=== PATIENT | female | born 1950 | race Caucasian/White ===

== ENCOUNTER 2017-06-11 15:45 | Inpatient (IN) ==
--- NOTE | 2017-06-11 16:32 | EKG Report ---
Stationary ECG Study [facility] ER Test Date: 06/11/2017 4:30:54 PM Pat Name: MADINA RODRIGUEZ Department: Room: Gender: F Electric Shipyard Operator: : 1950 Requested by: Avery Barbosa Order Number: [id number] Reading MD: CADEN CHANDLER Intervals [place] Rate: 77 P: 38 RI: 124 QRS: 3 QRSD: 86 T: 28 QT: 419 QTc: 451 Interpretive Statements SINUS RHYTHM WITH OCCASIONAL VENTRICULAR PREMATURE COMPLEXES MODERATE VOLTAGE CRITERIA FOR LVH, CONSIDER NORMAL VARIANT Electronically Signed On 06-11-17 18:50:27 CDT by CADEN CHANDLER [email or web address]
--- NOTE | 2017-06-11 16:32 | XRay Report ---
Exam: XR chest 1V Date: 06/11/2017 4:10 PM Indication: Rales right base Comparison: None Technical: AP Findings: The heart is normal in size. The examination suggest possibility of pneumoperitoneum eventration of left hemidiaphragm versus a possibly a large hiatal hernia which seems less likely. Atelectatic changes are present with prominence in the perihilar regions bilaterally. Impression: 1. Masslike density or eventration along the left hemidiaphragm and/or possibility of a large bulla or pneumoperitoneum or hiatal hernia present. This exam is extremely limited on the AP view. Atelectatic changes are present with low volume effusions in both bases. CT scan of the chest and abdomen /pelvis are recommended for further evaluation of this patient. Critical test result. These findings were discussed with Dr. Lali Mcdonald. PROCEDURE INTERPRETED AT [facility] DEPARTMENT OF RADIOLOGY Final Report Signed by: Dr. Alverto Choudhury
[2017-06-11 17:01] LABS: CKMB % 1.8 %
[2017-06-11 17:03] LABS: Troponin I Only 2.4 NG/ML (0.00-0.045)
--- NOTE | 2017-06-11 17:57 | Emergency Department Note ---
Sixto Hendrickson Brooke, am scribing for, and in the presence of, Avery Mcdonald MD 16:16. Harry Hendrickson Phillip K, MD, personally performed the services described in this documentation, ascribed by Eunice Henson in my presence, and it is both accurate and complete 632 . Arrival <Jc Castro - Last Filed: 06/11/17 19:03> - Arrival ED Nursing Triage Note: pt had 4 fentalyn patches on. karly removed two and left a 50mcg and a 100mcg fentalyn patch. pt had abnormal troponin Mode of Arrival: Stretcher Limitations: No Limitations Source: Patient, EMS, RN Notes Reviewed <Avery Mcdonald - Last Filed: 06/12/17 10:03> - Arrival Chief Complaint: Non-Specific Time Seen by Provider: 06/11/17 16:04 - History of Present Illness HPI Narrative: Patient is a 66 year old female who was brought into the ED by EMS, from [facility], with c/o abnormal troponin. Labwork at [facility]- CPK: 771, CKMB: 21, and Troponin: 1.56. Patient says she "accidentally" overdosed on Fentanyl patches last night. She normally wears two but had four on. Patient went to [facility] with c/o being confused. She says she feels sluggish. She denies having any chest pain and fever but says she has been short of breath for the "last couple of weeks" and had a non- productive cough. Patient has never had a heart cath done. She has no other complaints. Patient has PMHx of CHF, HTN, CT, asthma, recurring urinary tract infections, and osteoporosis. She is a smoker. (Eunice Henson) Patient is a 66 year old female who was brought into the ED by EMS, from [facility], with c/o abnormal troponin. Labwork at [facility]- CPK: 771, CKMB: 21, and Troponin: 1.56. Patient says she "accidentally" overdosed on Fentanyl patches last night. She normally wears two but had four on. Patient went to [facility] with c/o being confused. She says she feels sluggish. She denies having any chest pain and fever but says she has been short of breath for the "last couple of weeks" and had a non- productive cough. Patient has never had a heart cath done. She has no other complaints. Patient has PMHx of CHF, HTN, CT, asthma, recurring urinary tract infections, and osteoporosis. She is a smoker. (Avery Mcdonald) Allergies/Adverse Reactions: Allergies Allergy/AdvReac Type Severity Reaction Status Date / Time Cephalosporins AdvReac ANAPHYLAXIS Verified 06/11/17 15:58 Erythromycin Base AdvReac RASH Verified 06/11/17 15:58 naproxen AdvReac RASH Verified 06/11/17 15:58 Home Medications: Home Medications Medication Instructions Recorded Confirmed Type Aspirin [Ecotrin] 81 mg PO QAM 06/11/17 06/11/17 History Beclomethasone 40 Mcg Inhaler 120 mcg INH BID PRN 06/11/17 06/11/17 History [Qvar 40 Mcg] Carisoprodol [Soma] 350 mg PO TID 06/11/17 06/11/17 History Celecoxib [Celebrex] 200 mg PO QAM 06/11/17 06/11/17 History Cholecalciferol [Vitamin D3] 1,000 unit PO BEDTIME 06/11/17 06/11/17 History Fluoxetine HCl [Prozac] 40 mg PO BID 06/11/17 06/11/17 History Hydromorphone HCl [Hydromorphone 4 mg PO TID 06/11/17 06/11/17 History HCl] Indapamide [Indapamide] 2.5 mg PO QAM 06/11/17 06/11/17 History Ipratropium/Albuterol Inhaler 3 puffs PO DAILY PRN 06/11/17 06/11/17 History [Combivent Respimat Inhaler] Lubiprostone [Amitiza] 24 mcg PO BID W/MEALS 06/11/17 06/11/17 History Montelukast Sodium [Montelukast 10 mg PO BEDTIME 06/11/17 06/11/17 History Sodium] Multivit-Min/FA/Lycopen/Lutein 1 each PO QAM 06/11/17 06/11/17 History [Centrum Silver Tablet] Oxymetazoline 0.05% Nasal Spr 2 spray BOTH NARES BID PRN 06/11/17 06/11/17 History [Afrin Nasal [place]] Polyethylene Glycol Powder 34 gm PO DAILY PRN 06/11/17 06/11/17 History [Miralax] Potassium Chloride [Potassium 20 meq PO TID 06/11/17 06/11/17 History Chloride] Spironolactone [Spironolactone] 25 mg PO BID 06/11/17 06/11/17 History Trazodone HCl [Trazodone HCl] 200 mg PO BEDTIME 06/11/17 06/11/17 History Verapamil HCl [Verapamil ER Tab] 120 mg PO QPM 06/11/17 06/11/17 History Verapamil HCl [Verapamil ER Tab] 240 mg PO QAM 06/11/17 06/11/17 History fentaNYL [Fentanyl 100 mcg/hr 1 each TRANSDERM Q2D 06/11/17 06/11/17 History Patch] fentaNYL [Fentanyl 50 mcg/hr Patch] 1 each TRANSDERM Q2D 06/11/17 06/11/17 History hydrOXYzine HCl [Hydroxyzine HCl] 25 mg PO TID 06/11/17 06/11/17 History raNITIdine HCl [Ranitidine HCl] 300 mg PO BID 06/11/17 06/11/17 History Review of System - Review of System 12 point system: reviewed and no additional remarkable complaints except as stated - Review of System Constitutional: Present: other (overdosed on Fentanyl patches). Absent: fever Respiratory: Present: cough (non-productive), other (shortness of breath). Absent: respiratory distress Cardiovascular: Absent: chest pain Skin: Absent: rash Neurological: Present: confusion <Avery Mcdonald - Last Filed: 06/12/17 10:03> Medical,Surgical,& Family Hx - Medical History Cardio: History of: CHF, Hypertension, CT Respiratory: History of: Asthma Genitourinary: History of: Recurring Urinary Tract Infections Musculoskeletal: History of: Osteoporosis - Social History Smoking Status: Smoker, status unknown Frequency of Alcohol Use: Occasionally Type of Drug Use: Prescription Drug Abuse <Avery Mcdonald - Last Filed: 06/12/17 10:03> Exam - General General appearance: alert, in no apparent distress - Head Head exam: Present: atraumatic, normocephalic - Eye Eye exam: Present: normal appearance, PERRL, EOMI - ENT ENT exam: Present: normal exam - Neck Neck exam: Present: normal inspection - Chest Chest inspection: Present: normal inspection, symmetric chest wall rise - Respiratory Respiratory exam: Present: rales (Right base), other (decreased breath sounds in left base) - Cardiovascular Cardiovascular exam: Present: regular rate, normal rhythm, normal heart sounds - Abdominal Exam Abdominal exam: Present: soft, normal bowel sounds. Absent: distention, tenderness - Extremities Exam Extremities exam: Present: pedal edema (3+ bilateral lower extremity pitting edema) - Back Exam Back exam: Present: normal inspection - Neurological Exam Neurological exam: Present: alert, oriented X3 - Psychiatric Psychiatric exam: Present: normal affect, normal mood - Skin Skin exam: Present: warm, dry, intact, normal color <Avery Mcdonald - Last Filed: 06/12/17 10:03> Vital Signs: Vital Signs Temperature 97.6 F 06/12/17 08:00 Pulse Rate 84 06/12/17 08:00 Respiratory Rate 20 06/12/17 08:00 Blood Pressure 144/90 06/12/17 08:00 O2 Sat by Pulse Oximetry 97 06/12/17 08:00 Course - Consultations Time: 19:03 <Jc Castro - Last Filed: 06/11/17 19:03> <Avery Mcdonald - Last Filed: 06/12/17 10:03> Course Narrative: Patient discussed with Dr. Garcia at 1626 and was told of the positive troponin. Patient's EKG remains normal. (Avery Mcdonald) - Consultations Consultation #1: Spoke to Dr. Regan he is aware of the CT results he agreed to admit this patient for rise in troponin levels (Jc Castro) Results <cJ Castro - Last Filed: 06/11/17 19:03> - Labs CBC & BMP: 06/12/17 01:13 06/12/17 01:13 Lab Results: I have reviewed the patients labs - EKG EKG results: interpreted by ERMWalter, sinus rhythm (Nonspecific ST-T changes) - Diagnostic Findings Procedure: Chest x-ray: report reviewed by me (Masslike density or eventration along the left hemidiaphragm and/or possibility of large bulla or pneumoperitoneum or hiatal hernia present. This exam is extremely limited on the AP view. Atelectatic changes are present with low volume effusions in both bases.) <Avery Mcdonald - Last Filed: 06/12/17 10:03> - Labs Labs: Laboratory Tests 06/11/17 16:22 Total Creatine Kinase 942 H CK-MB (CK-2) 17.4 H CK and CKMB Interp 1.8 Troponin I 2.400 H (Eunice Henson) Laboratory Tests 06/11/17 16:22 Total Creatine Kinase 942 H CK-MB (CK-2) 17.4 H CK and CKMB Interp 1.8 Troponin I 2.400 H (Avery Mcdonald) Disposition Case discussed with: patient, patient's family Time of Disposition: 19:04 <Jc Castro - Last Filed: 06/11/17 19:03> Case discussed with: patient <Avery Mcdonald - Last Filed: 06/12/17 10:03> Clinical Impression: Non Q wave myocardial infarction, Elevated troponin, Non-ST elevated myocardial infarction (non-STEMI) Disposition: Still a Patient Condition: Guarded
--- NOTE | 2017-06-11 18:32 | CT Report ---
CT of the chest, abdomen, and pelvis without intravenous or oral contrast. Indication: Chest and abdomen pain. Rales at the right lung base. Abnormal chest x-ray. No prior study. CT the chest: The thyroid gland is normal in size. There is no supraclavicular or axillary lymphadenopathy. There is calcific plaque present within a normal caliber thoracic aorta. There is coronary artery calcification. The heart size is normal. There is no pericardial or pleural effusion. No definite lymphadenopathy. Calcified granulomas are noted within the right upper lung field. There is mild atelectasis in the right middle lobe. No suspicious masses or infiltrates involving the right lung. The left hemidiaphragm is intact but elevated. There are linear areas of atelectasis or scarring in the left lower lobe. There is a very small hiatal hernia. There is no diaphragmatic hernia seen. There are multiple thoracic compression fractures, exaggerated kyphosis, and moderate degenerative change. Postsurgical changes are noted in the lower cervical spine, and at the thoracolumbar junction. Impression: 1. Marked elevation of the left hemidiaphragm. 2. Atelectasis or scarring at the left lung base. 3. Small hiatal hernia. 4. Mild atelectasis at the right lung base. 5. Atherosclerotic disease. 6. Multiple thoracic compression fractures. CT of the abdomen and pelvis: As was noted on the CT of the chest, there is marked elevation of the left hemidiaphragm. The left hemidiaphragm is intact. There is no free air present. There is a mild hiatal hernia. The gastric contour is grossly normal. The liver is normal in size. Hepatic granulomas are noted. The gallbladder has been removed. The common hepatic duct is markedly dilated at 24 mm. This tapers within the head of the pancreas, no calcification noted. The pancreas is quite atrophied. The spleen is somewhat prominent. The spleen has a lobular portion seen medially. Without contrast, the presence of a mass cannot be determined. The abdominal aorta is tortuous and contains moderate plaque. No aneurysmal dilatation. There is a small 3 mm right renal calculus. No hydronephrosis. The urinary bladder is collapsed around a Fong catheter. There is no free fluid in the abdomen or pelvis. There is no adrenal enlargement. The small intestine is not dilated. The colon is dilated and redundant and contains considerable fecal material throughout its length. No colonic wall thickening or evidence of obstruction. The pelvic organs have been removed. No adenopathy. There is orthopedic hardware present within the left hip. There is a severe grade 2 spondylolisthesis of L5 on S1, with prominent degenerative changes of the spinal column as well as postsurgical changes in thoracic compression fractures. Impression: 1. Marked elevation of the left hemidiaphragm. No diaphragmatic hernia. 2. Small hiatal hernia. 3. Lobular contour to the spleen. This may represent normal variant. The absence or presence of a mass could be determined with ultrasound. 4. Marked dilatation of the common bile duct, the cause of which is not determined. Maximum diameter 2.4 cm. 5. Right nephrolithiasis without obstruction. 6. Severe constipation. 7. Spondylolisthesis, degenerative change, and chronic compression fractures The CT exam was performed using one or more of the following dose reduction techniques: Automated exposure control, adjustment of the mA and/or kV according to patient size, or use of iterative reconstruction technique. PROCEDURE INTERPRETED AT [facility] DEPARTMENT OF RADIOLOGY Final Report Signed by: Dr. Yuko May
[2017-06-11] MEDS ORDERED: ENOXAPARIN 80 MG/0.8 ML SYRINGE SUBCUT SCH (22:00)
[2017-06-11] MEDS ORDERED: fentaNYL 50 MCG/HR PATCH TRANSDERM SCH (22:03)
[2017-06-11] MEDS ORDERED: ONDANSETRON 4 MG/2 ML VIAL IV PRN (22:03)
[2017-06-11] MEDS ORDERED: BECLOMETHASONE 40 MCG/PUFF INHALER 8.7 GM INH PRN (22:03)
[2017-06-11] MEDS ORDERED: MAGNESIUM SULF RIDER 2 GM in PREMIX 1 EACH IV PRN (22:03)
[2017-06-11] MEDS ORDERED: OXYMETAZOLINE 0.05% NASAL SPRAY 15 ML BOTTLE BOTH NARES PRN (22:03)
[2017-06-11] MEDS ORDERED: fentaNYL 100 MCG/HR PATCH TRANSDERM SCH (22:03)
[2017-06-11] MEDS ORDERED: POLYETHYLENE GLYCOL POWDER 17 GM PACK PO PRN (22:03)
[2017-06-11] MEDS ORDERED: SODIUM CHLORIDE 0.9% 1,000 ML IV SCH (22:03)
[2017-06-11] MEDS ORDERED: MAGNESIUM SULF RIDER 4 GM in PREMIX 1 EACH IV PRN (22:03)
[2017-06-11] MEDS ORDERED: MORPHINE 2 MG/1 ML SYRINGE IV PRN (22:03)
--- NOTE | 2017-06-11 22:30 | EKG Report ---
Stationary ECG Study [facility] Test Date: 06/11/2017 10:26:15 PM Pat Name: MADINA RODRIGUEZ Department: Room: 263 Gender: F Business Analysis Specialist: : 1950 Requested by: Jc Billings Order Number: [id number] Reading MD: JONY SHERIFF Intervals [place] Rate: 70 P: 66 ID: [id number] QRS: 36 QRSD: 93 T: 71 QT: 465 QTc: 486 Interpretive Statements SINUS RHYTHM at 70 bpm NST Electronically Signed On 06-15-17 14:14:47 CDT by JONY SHERIFF [email or web address]
[2017-06-11] MEDS ORDERED: ASPIRIN 325 MG TABLET PO ONE (22:44)
[2017-06-11] MEDS ORDERED: FUROSEMIDE 40 MG/4 ML VIAL IV ONE (22:45)
[2017-06-11] MEDS ORDERED: ENOXAPARIN 40 MG/0.4 ML SYRINGE SUBCUT ONE (22:46)
[2017-06-11 23:04] LABS: CKMB % 1.7 %
[2017-06-11 23:07] LABS: Troponin I Only 1.83 NG/ML (0.00-0.045)
[2017-06-11] MEDS: hydrOXYzine HCL 25 MG TABLET PO SCH (23:16)
[2017-06-11] MEDS: HYDROmorphone 2 MG TABLET PO SCH (23:16)
[2017-06-11] MEDS: SPIRONOLACTONE 25 MG TABLET PO SCH (23:16)
[2017-06-11] MEDS: FAMOTIDINE 20 MG TABLET PO SCH (23:17)
[2017-06-11] MEDS: POTASSIUM CHLORIDE 20 MEQ TABLET PO SCH (23:17)
[2017-06-11] MEDS: CHOLECALCIFEROL 1,000 UNIT TABLET PO SCH (23:18)
[2017-06-11] MEDS: MONTELUKAST 10 MG TABLET PO SCH (23:18)
[2017-06-11] MEDS: traZODone 50 MG TABLET PO SCH (23:18)
[2017-06-11] MEDS: FLUoxetine 20 MG CAPSULE PO SCH (23:18)
[2017-06-11] MEDS: CARISOPRODOL 350 MG TABLET PO SCH (23:18)
--- NOTE | 2017-06-12 00:39 | EKG Report ---
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
[2017-06-12] MEDS: NITROGLYCERIN 2% OINT 1 INCH/GM PACK TOP SCH ×2 (00:41→06:20)
[2017-06-12 01:25] LABS: Basophils % 0.7 % (0.0-0.8); Eosinophils # 0.1 10*3/uL (0.0-0.87); Eosinophils % 2.6 % (0.00-10.9); Hematocrit 36.5 VOL% (35.7-47.0); Hemoglobin 12.4 GM/DL (12.0-16.0); Immature Granulocytes % 0.2 %; Immature Granulocytes Absolute 0.01 #; Lymphocytes # 1.4 10*3/uL (1.4-4.0); Lymphocytes % 33.9 % (21.3-54.2); Mean Corpuscular Hemoglobin 30 PG (27-34); Mean Corpuscular Volume 86.9 FL (87-102); Mean Platelet Volume 10.7 FL (9.6-12.0); Monocytes # 0.3 10*3/uL (0.11-0.8); Monocytes % 8.1 % (1.7-12.7); Neutrophils # 2.3 10*3/uL (1.4-7.4); Neutrophils % 54.5 % (38.7-73.9); Platelet Count 146 T/CUMM (130-400); Red Cell Distribution Width 13.2 % (9.3-17.3); White Blood Count 4.2 T/CUMM (4-12)
[2017-06-12 02:01] LABS: Albumin 3.3 G/DL (3.4-5.0); Bilirubin,Total 0.5 MG/DL (0.2-1.0); CKMB % 1.6 %; Calcium 9.2 MG/DL (8.5-10.1); Magnesium 1.7 MG/DL (1.8-2.4); Osmolality,Calculated 273.7 MOS/KG (273-304); Potassium 3.3 MMOL/L (3.5-5.1); Risk Ratio 2.61; Total Protein 5.9 G/DL (6.4-8.3); VLDL CHOLESTEROL 13.4 MG/DL
[2017-06-12 02:02] LABS: CKMB % 1.7 %
[2017-06-12 02:04] LABS: Troponin I Only 1.41 NG/ML (0.00-0.045); Troponin I Only 1.44 NG/ML (0.00-0.045)
[2017-06-12] MEDS: POTASSIUM CHLORIDE 20 MEQ TABLET PO PRN ×3 (02:11→06:20)
--- NOTE | 2017-06-12 04:20 | EKG Report ---
Stationary ECG Study [facility] Test Date: 06/12/2017 4:16:42 AM Pat Name: MADINA RODRIGUEZ Department: Room: 263 Gender: F Government Services Professional: : 1950 Requested by: Jc Billings Order Number: [id number] Reading MD: JONY SHREIFF Intervals [place] Rate: 78 P: 62 VA: 154 QRS: 55 QRSD: 93 T: 76 QT: 462 QTc: 495 Interpretive Statements SINUS RHYTHM at 70 bpm Prolonged QT INTERVAL Electronically Signed On 06-15-17 14:17:45 CDT by JONY SHERIFF [email or web address]
[2017-06-12] MEDS ORDERED: ALBUTEROL PO PRN (07:28)
[2017-06-12] MEDS ORDERED: IPRATROPIUM PO PRN (07:28)
[2017-06-12] MEDS ORDERED: MAGNESIUM HYDROXIDE SUSP 30 ML UDCUP PO ONE (07:30)
[2017-06-12] MEDS ORDERED: BISACODYL 10 MG SUPP RECTAL ONE (07:30)
[2017-06-12] MEDS ORDERED: DIAZEPAM 5 MG TABLET PO ONE (07:31)
[2017-06-12] MEDS ORDERED: MAGNESIUM SULF RIDER 2 GM in PREMIX 1 EACH IV PRN (07:31)
[2017-06-12] MEDS ORDERED: POTASSIUM CHLORIDE RIDER 10 MEQ in PREMIX 1 EACH IV PRN (07:31)
[2017-06-12] MEDS ORDERED: diphenhydrAMINE CAP 25 MG CAPSULE PO ONE (07:31)
[2017-06-12] MEDS ORDERED: HEPARIN/NACL 0.9% 2 UNITS/ML 1,000 ML IV ONE (07:36)
[2017-06-12] MEDS ORDERED: LIDOCAINE 1% 20 ML VIAL ONE (07:36)
--- NOTE | 2017-06-12 07:37 | Cardiology History & Physical ---
Assessment and Plan (1) CHF (congestive heart failure) Status: Acute Current Visit: Yes (2) Non-ST elevated myocardial infarction (non-STEMI) Status: Acute Assessment and plan: 1. 66-year-old WF smoker (reportedly quit within the last week) with hypertension, reported dyslipidemia, chronic pain on significant narcotic and other pain medications, presented to local ER due to mental status changes related to being on for fentanyl patches (reportedly she takes too regularly and reportedly forgot to take off the previous 2), incidentally noted to have elevated troponin suggesting non-STEMI with dyspnea on exertion and lower extremity swelling for several weeks suggestive of left and right heart failure. 2. No acute EKG changes are noted and no previous cardiac history although she has a strong family history of early coronary disease. 3. At high intensity statin therapy 4. Continue aspirin 5. CT scan showed incidental finding of possible spleen abnormality, will order ultrasound as recommended by CT report 6. Low-dose beta-leticia therapy 7. Constipation likely due to large amounts of narcotics for pain control. 8. Left heart catheterization to define her coronary anatomy I discussed with the patient the risks and benefits of heart catheterization including but not limited to: , stroke, heart attack, vascular damage, reaction to medicine or dye, bleeding requiring blood transfusion, failure of the procedure, and the possible need for planned or emergency surgery. I have answered all the patient's questions regarding the procedure, and the patient is agreeable to proceed. Current Visit: Yes (3) Constipated Status: Acute Current Visit: Yes (4) Spleen anomaly Status: Acute Current Visit: Yes History of Present Illness Chief complaint: MS change; sob History of present illness: Ms. Coleman is a 66 year old female who ended up at [facility] for uncertain reasons but apparently she had mental status changes. She is found to have 4 fentanyl patches on. Her workup she is noted to have elevated troponin over 1 and was asked about chest pain shortness of breath. She says she has had dyspnea problems for several weeks to a couple months and is also had some lower extremity edema for which her primary care doctor has been giving her medicines including diuretics. She denies any previous cardiac problems. She is very limited by her many pains especially lower back pain and sees Dr. Gordon for pain management. She also she has fibromyalgia. She is asymptomatic currently. Home Medications Medication Instructions Recorded Confirmed Type Aspirin [Ecotrin] 81 mg PO QAM 06/11/17 06/11/17 History Beclomethasone 40 Mcg Inhaler 120 mcg INH BID PRN 06/11/17 06/11/17 History [Qvar 40 Mcg] Carisoprodol [Soma] 350 mg PO TID 06/11/17 06/11/17 History Celecoxib [Celebrex] 200 mg PO QAM 06/11/17 06/11/17 History Cholecalciferol [Vitamin D3] 1,000 unit PO BEDTIME 06/11/17 06/11/17 History Fluoxetine HCl [Prozac] 40 mg PO BID 06/11/17 06/11/17 History Hydromorphone HCl [Hydromorphone 4 mg PO TID 06/11/17 06/11/17 History HCl] Indapamide [Indapamide] 2.5 mg PO QAM 06/11/17 06/11/17 History Ipratropium/Albuterol Inhaler 3 puffs PO DAILY PRN 06/11/17 06/11/17 History [Combivent Respimat Inhaler] Lubiprostone [Amitiza] 24 mcg PO BID W/MEALS 06/11/17 06/11/17 History Montelukast Sodium [Montelukast 10 mg PO BEDTIME 06/11/17 06/11/17 History Sodium] Multivit-Min/FA/Lycopen/Lutein 1 each PO QAM 06/11/17 06/11/17 History [Centrum Silver Tablet] Oxymetazoline 0.05% Nasal Spr 2 spray BOTH NARES BID PRN 06/11/17 06/11/17 History [Afrin Nasal [place]] Polyethylene Glycol Powder 34 gm PO DAILY PRN 06/11/17 06/11/17 History [Miralax] Potassium Chloride [Potassium 20 meq PO TID 06/11/17 06/11/17 History Chloride] Spironolactone [Spironolactone] 25 mg PO BID 06/11/17 06/11/17 History Trazodone HCl [Trazodone HCl] 200 mg PO BEDTIME 06/11/17 06/11/17 History Verapamil HCl [Verapamil ER Tab] 120 mg PO QPM 06/11/17 06/11/17 History Verapamil HCl [Verapamil ER Tab] 240 mg PO QAM 06/11/17 06/11/17 History fentaNYL [Fentanyl 100 mcg/hr 1 each TRANSDERM Q2D 06/11/17 06/11/17 History Patch] fentaNYL [Fentanyl 50 mcg/hr Patch] 1 each TRANSDERM Q2D 06/11/17 06/11/17 History hydrOXYzine HCl [Hydroxyzine HCl] 25 mg PO TID 06/11/17 06/11/17 History raNITIdine HCl [Ranitidine HCl] 300 mg PO BID 06/11/17 06/11/17 History Allergies Allergy/AdvReac Type Severity Reaction Status Date / Time Cephalosporins AdvReac ANAPHYLAXIS Verified 06/11/17 15:58 Erythromycin Base AdvReac RASH Verified 06/11/17 15:58 naproxen AdvReac RASH Verified 06/11/17 15:58 Medical,Surgical,& Family Hx - Medical History Cardio: History of: CHF, Hypertension, [place] Respiratory: History of: Asthma Genitourinary: History of: Recurring Urinary Tract Infections Musculoskeletal: History of: Osteoporosis - Social History Smoking Status: Current some day smoker Frequency of Alcohol Use: Occasionally Type of Drug Use: Prescription Drug Abuse Cardiology Physical Exam - Constitutional Vitals: Vital Signs Temp Pulse Resp BP Pulse Ox 97.9 F 73 19 98/63 90 L 06/12/17 04:00 06/12/17 04:00 06/12/17 07:10 06/12/17 04:00 06/12/17 04:00 Intake and Output 06/11/17 06/11/17 06/12/17 15:59 23:59 07:59 Output Total 1100 / 1100 1999 / 1999 Balance -1100 / -1100 -2000 / -1999 Output: Urine 1000 / 1000 1999 / 1999 Post Void Residual Amount 100 / 100 Uretheral (Fong) 100 / 100 Other: Voiding Method Indwelling Catheter Indwelling Catheter Weight 68.039 kg 75.892 kg 74.928 kg Patient Weight 06/12/17 23:59 Weight 74.928 kg General appearance: normal weight, no acute distress - Head Head exam: Present: normal inspection, normocephalic, atraumatic - Respiratory Respiratory exam: Present: rales. Absent: stridor, wheezes - Cardiovascular Cardiovascular exam: Present: regular rate and rhythm. Absent: diastolic murmur , systolic murmur - GI/Abdominal GI/Abdominal exam: Present: soft. Absent: tenderness - Extremities Exam Extremities exam: Present: edema - Neurological Exam Neurological exam: Present: alert, oriented X3 - Psychiatric Psychiatric exam: Present: flat affect Result/EKG - Labs CBC & BMP: 06/12/17 01:13 06/12/17 01:13 Labs: Laboratory Results - last 24 hr 06/11/17 06/11/17 06/12/17 16:22 22:10 01:13 WBC RBC Hgb Hct MCV MCH MCHC RDW Plt Count MPV Neut % (Auto) Lymph % (Auto) [place] % (Auto) Eos % (Auto) Baso % (Auto) Neut # (Auto) Lymph # (Auto) [place] # (Auto) Eos # (Auto) Baso # (Auto) Immature Gran % Nucleated RBC % Immature Gran # Nucleated RBCs # Immature Plt Fraction Sodium Potassium Chloride Carbon Dioxide Anion Gap BUN Creatinine GFR Calculation BUN/Creatinine Ratio Glucose Calculated Osmolality Calcium Magnesium Total Bilirubin AST ALT Alkaline Phosphatase Total Creatine Kinase 942 H 819 H 705 H CK-MB (CK-2) 17.4 H 14.0 H 11.9 H CK and CKMB Interp 1.8 1.7 1.7 Troponin I 2.400 H 1.830 H D 1.410 H D B-Natriuretic Peptide Total Protein Albumin Globulin Albumin/Globulin Ratio Triglycerides Cholesterol LDL Cholesterol VLDL Cholesterol HDL Cholesterol Heart Disease Risk Ratio 06/12/17 06/12/17 06/12/17 01:13 01:13 01:13 WBC 4.2 RBC 4.20 Hgb 12.4 Hct 36.5 MCV 86.9 L MCH 30 MCHC 34.0 RDW 13.2 Plt Count 146 MPV 10.7 Neut % (Auto) 54.5 Lymph % (Auto) 33.9 Runnels % (Auto) 8.1 Eos % (Auto) 2.6 Baso % (Auto) 0.7 Neut # (Auto) 2.3 Lymph # (Auto) 1.4 [place] # (Auto) 0.3 Eos # (Auto) 0.1 Baso # (Auto) 0.0 Immature Gran % 0.2 Nucleated RBC % 0.0 Immature Gran # 0.01 Nucleated RBCs # 0.00 Immature Plt Fraction 0.0 Sodium 138 Potassium 3.3 L Chloride 96 L Carbon Dioxide 36 H Anion Gap 9.3 BUN 9 Creatinine 0.90 GFR Calculation 69 BUN/Creatinine Ratio 10.00 Glucose 105 Calculated Osmolality 273.7 Calcium 9.2 Magnesium 1.7 L Total Bilirubin 0.50 AST 43 H ALT 22 Alkaline Phosphatase 83 Total Creatine Kinase CK-MB (CK-2) CK and CKMB Interp Troponin I B-Natriuretic Peptide 295 H Total Protein 5.9 L Albumin 3.3 L Globulin 2.6 Albumin/Globulin Ratio 1.2 Triglycerides 67 Cholesterol 209 H LDL Cholesterol 114.0 VLDL Cholesterol 13.4 HDL Cholesterol 80 H Heart Disease Risk Ratio 2.61 06/12/17 01:13 WBC RBC Hgb Hct MCV MCH MCHC RDW Plt Count MPV Neut % (Auto) Lymph % (Auto) [place] % (Auto) Eos % (Auto) Baso % (Auto) Neut # (Auto) Lymph # (Auto) [place] # (Auto) Eos # (Auto) Baso # (Auto) Immature Gran % Nucleated RBC % Immature Gran # Nucleated RBCs # Immature Plt Fraction Sodium Potassium Chloride Carbon Dioxide Anion Gap BUN Creatinine GFR Calculation BUN/Creatinine Ratio Glucose Calculated Osmolality Calcium Magnesium Total Bilirubin AST ALT Alkaline Phosphatase Total Creatine Kinase 719 H CK-MB (CK-2) 11.6 H CK and CKMB Interp 1.6 Troponin I 1.440 H B-Natriuretic Peptide Total Protein Albumin Globulin Albumin/Globulin Ratio Triglycerides Cholesterol LDL Cholesterol VLDL Cholesterol HDL Cholesterol Heart Disease Risk Ratio
--- NOTE | 2017-06-12 08:34 | History and Physical Update ---
Sedation H&P Update - History and Physical H&P was reviewed, the patient examined and there: are no changes in the patients condition since last H&P was completed. - Dictation Physical: refer to scanned H&P - Physical Exam Mental Status: alert and oriented Heart: regular rate and rhythm Lung: other (globally diminished breath sounds) Abdomen: other (tender and normal bowel souds) Vitals: within normal limits History and Physical Changes: Painful bilateral LE edema - Sedation Plan for Sedation: minimal Patient Consent: Procedure disscussed with patient and patinet has consented., Risks and benefits were discussed with patient,including infection,, bleeding, injury to surrounding structures, seizure, temporary nerve, Patient understands and accepts potential risks/benefits and agrees to, proceed. ASA Class: II Airway Assessment: Class II: Soft palate, uvula, fauces visible
--- NOTE | 2017-06-12 08:36 | XRay Report ---
History is short of breath Comparison 06/11/2017 The heart is enlarged with mild upper lobe vascular prominence. Mild diffuse reticular opacities remain with mild improvement in the interval. Marked elevation or eventration of the left diaphragm again seen. Impression: Interval improvement with mild residual diffuse interstitial infiltrates versus edema PROCEDURE INTERPRETED AT [facility] DEPARTMENT OF RADIOLOGY Final Report Signed by: Dr. Lisa May
[2017-06-12] MEDS: ASPIRIN EC 81 MG TABLET PO SCH (08:43)
[2017-06-12] MEDS: FAMOTIDINE 20 MG TABLET PO SCH ×2 (08:44→22:21)
[2017-06-12] MEDS ORDERED: INDAPAMIDE 2.5 MG TABLET PO SCH (09:00)
[2017-06-12] MEDS ORDERED: VERAPAMIL SR 240 MG TABLET PO SCH (09:00)
[2017-06-12] MEDS ORDERED: ASPIRIN EC 325 MG TABLET PO SCH (09:00)
[2017-06-12] MEDS ORDERED: fentaNYL 100 MCG/2 ML VIAL ONE (09:37)
[2017-06-12] MEDS ORDERED: MIDAZOLAM 2 MG/2 ML VIAL ONE (09:37)
[2017-06-12] MEDS ORDERED: BIVALIRUDIN 250 MG VIAL IV ONE (10:19)
[2017-06-12] MEDS ORDERED: NITROGLYCERIN DRIP 50 MG/250 ML BOTTLE IV ONE (10:19)
[2017-06-12] MEDS ORDERED: TICAGRELOR 90 MG TABLET ONE (10:32)
[2017-06-12] MEDS ORDERED: HEPARIN/NACL 0.9% 2 UNITS/ML 500 ML IV ONE (10:37)
[2017-06-12] MEDS ORDERED: ZALEPLON 5 MG CAPSULE PO PRN (10:38)
--- NOTE | 2017-06-12 10:50 | Cardiac Catheterization ---
Date of Procedure:: 06/12/17 Pre-op Diagnosis: Shortness of breath (dyspnea) and chest pain Post-op diagnosis: other (2 vessel coronary disease status post successful PCI of the mid RCA and mid left circumflex with 2.5 x 20 mm and 2.515 mm Synergy drug-eluting stents respectively) Procedure: After consent was taken from the patient. Taken to the catheterization lab for left heart catheterization via the femoral artery. Time out was taken and recorded. 1% lidocaine was infiltrated in the skin and subcutaneous tissue overlying the right femoral artery. Modified Seldinger technique and an 18- gauge Cook needle was used for access to the right femoral artery. An 0.35 J- wire was advanced through the needle into the central aorta under fluoroscopy. A small skin was made and a 6 Sinhala sheath was placed over the wire. The sheath was aspirated and flushed. A JL46 was advanced over the wires in the left main coronary artery was selectively engaged. Multiple orthogonal views of the left system were obtained. The catheter was then exchanged over the wire. The sheath was aspirated and flushed. A JR4 catheter was advanced over the wire into the central aorta. The right coronary was selectively engaged and orthogonal views of the right coronary artery were obtained. The catheter was then exchanged over the wire, the sheath was aspirated and flushed. At this time an angled pigtail catheter was advanced across the aortic valve into the ventricle. Pressure measurements were obtained and a cine ventriculogram was performed in the TURNER projection with total of 10 mL of contrast by hand injection. Pullback measurements were performed. The ferryboat operator helper reviewed the films. The room was set up for the intervention mode. Angiomax bolus infusion were given. The patient received an aspirin but no thienopyridine prior to the procedure. This time a JR4 guide is Miller of the one surgery over the right coronary slightly gauge 180 cm on December underwires of his into the distal RCA. This was followed by 2.0 by 12 mm [place] balloon. 2 inflations were made the balloon was removed and the area was stented with a 2.5 x 20 mm Synergy drug-eluting stent with excellent endograft result. He stent was postdilated to high pressure atmospheres with a 2.5 x 15 mm NC Quantum balloon. Wire was removed multiple orthogonal views were obtained. At this time intervention mode was turned over to focus on the left circumflex the JR4 guide was exchanged over wire and sheath was aspirated flushed and EBU 3.5 guide catheter was used to engage left main coronary artery in 180 cm pro- water wire was advanced in the distal left circumflex. This area was then predilated with the previous 2.0 x 12 mm [place] balloon. Balloon was removed and there was a 2.5 x 15 mm Synergy drug-eluting stent was advanced and cover the area of stenosis the stent was deploy. There was extreme waist in the mid segment of the stent. Stent balloon was removed the area was postdilated to 18 mario with a NC 2.5 Balloon. Wire balloon removed multiple orthogonal views were obtained. The sheath was aspirated and flushed and a right femoral and iliac angiography was performed. The access site was amenable for closure and the area was reprepped with ChloraPrep and draped with sterile towels. The Angio-Seal closure device was used in standard technique. There was no hematoma and distal pulses were good. Total diagnostic fluoroscopy time 7.9 minutes total fluoroscopy dose 849 mGy total contrast exposure 170 cc of Omnipaque FINDINGS: LV: 111/10 LVEDP: 17 Ao: 101/78 EF: 55% with no regional wall motion abnormality no gradient across the valve and no mitral regurgitation LM: A small vessel is angiographically normal LAD: There is a small vessel there is mild diffuse disease LCx: This is a nondominant vessel is relatively small and has an area of 80-90% focal stenosis in the mid left circumflex there is poststenotic dilatation. ROMMEL-3 flow in the vessel pre-and post PCI post PCI or 0% residual ROMMEL-3 flow RCA: This is a very small but dominant vessel. There is approximately 80% stenosis in the proximal portion of the midsegment pre-PCI with ROMMEL-3 flow post PCI or 0% residual stenosis with ROMMEL-3 flow. There is some poststenotic dilatation in this vessel. The vessel is diffusely diseased after the segment but is very small RFA/MONIQUE: These vessels are normal in immediate for closure no stenosis or plaque Assessment: 1. Two-vessel coronary disease status post successful PCI with 0% residual stenosis and ORMMEL-3 flow in both vessels in no apparent complication 2. Preserved cardiac volumes and ejection fraction with normal resting hemodynamics preserved ejection fraction PLAN: 1. Therapy lifestyle changes including and especially directed towards smoking cessation and aggressive risk factor modification pharmacologically 2. Dual antiplatelet therapy 3. Monitor for complications post PCI 4. Cardiac rehabilitation Implants: 2.5 x 20 mm Synergy drug-eluting stent in the mid RCA 2.5 x 15 mm Synergy in the mid left circumflex Angio-Seal closure right femoral arteriotomy Anesthesia: minimal conscious sedation Surgeon / Physician: Anay Olivas Adjunct Sociology Professor: none Estimated blood loss: none Specimens: none sent Condition: stable - Medications / Follow-up
[2017-06-12] MEDS ORDERED: SODIUM CHLORIDE 0.45% 1,000 ML IV SCH (11:00)
[2017-06-12] MEDS ORDERED: HYDROmorphone 2 MG TABLET PO PRN (11:24)
[2017-06-12] MEDS ORDERED: CARISOPRODOL 350 MG TABLET PO PRN (11:25)
[2017-06-12] MEDS: SPIRONOLACTONE 25 MG TABLET PO SCH ×2 (14:13→22:22)
[2017-06-12] MEDS: ATORVASTATIN 40 MG TABLET PO SCH ×2 (14:13→14:22)
[2017-06-12] MEDS: LUBIPROSTONE 24 MCG CAPSULE PO SCH ×3 (14:13→16:52)
[2017-06-12] MEDS: hydrOXYzine HCL 25 MG TABLET PO SCH ×3 (14:15→22:22)
[2017-06-12] MEDS: CARISOPRODOL 350 MG TABLET PO SCH (14:16)
[2017-06-12] MEDS: HYDROmorphone 2 MG TABLET PO SCH (14:16)
[2017-06-12] MEDS: MULTIVITAMIN (CENTRUM) TABLET PO SCH (14:22)
[2017-06-12] MEDS: POTASSIUM CHLORIDE 20 MEQ TABLET PO SCH ×3 (14:22→22:22)
[2017-06-12] MEDS: FLUoxetine 20 MG CAPSULE PO SCH ×2 (14:23→22:24)
--- NOTE | 2017-06-12 15:00 | EKG Report ---
Stationary ECG Study [facility] Test Date: 06/12/2017 11:08:13 AM Pat Name: MADINA RODRIGUEZ Department: Room: 263 Gender: F Roofer Helper: : 1950 Requested by: Caden Chandler Order Number: [id number] Reading MD: CADEN CHANDLER Intervals [place] Rate: 73 P: 58 [place]: 149 QRS: 46 QRSD: 83 T: 80 QT: 450 QTc: 476 Interpretive Statements SINUS RHYTHM PROLONGED QT INTERVAL Electronically Signed On 06-14-17 18:34:19 CDT by CADEN CHANDLER [email or web address]
[2017-06-12] MEDS ORDERED: VERAPAMIL SR 120 MG TABLET PO SCH (21:00)
[2017-06-12] MEDS: TICAGRELOR 90 MG TABLET PO SCH (22:21)
[2017-06-12] MEDS: CHOLECALCIFEROL 1,000 UNIT TABLET PO SCH (22:23)
[2017-06-12] MEDS: traZODone 50 MG TABLET PO SCH (22:23)
[2017-06-12] MEDS: MONTELUKAST 10 MG TABLET PO SCH (22:24)
[2017-06-13 05:01] LABS: Basophils % 0.5 % (0.0-0.8); Eosinophils # 0.1 10*3/uL (0.0-0.87); Eosinophils % 1.7 % (0.00-10.9); Hematocrit 39.2 VOL% (35.7-47.0); Hemoglobin 13.3 GM/DL (12.0-16.0); Immature Granulocytes % 0.2 %; Immature Granulocytes Absolute 0.01 #; Lymphocytes # 0.9 10*3/uL (1.4-4.0); Lymphocytes % 16.1 % (21.3-54.2); Mean Corpuscular HGB Conc 33.9 GM/DL (32-36); Mean Corpuscular Hemoglobin 29 PG (27-34); Mean Corpuscular Volume 85.8 FL (87-102); Mean Platelet Volume 11.4 FL (9.6-12.0); Monocytes # 0.5 10*3/uL (0.11-0.8); Monocytes % 8.6 % (1.7-12.7); Neutrophils # 4.3 10*3/uL (1.4-7.4); Neutrophils % 72.9 % (38.7-73.9); Platelet Count 156 T/CUMM (130-400); Red Blood Count 4.57 MC/CUMM (3.8-5.5); Red Cell Distribution Width 13.2 % (9.3-17.3); White Blood Count 5.8 T/CUMM (4-12)
[2017-06-13 05:25] LABS: Calcium 9.4 MG/DL (8.5-10.1); Osmolality,Calculated 269.1 MOS/KG (273-304); Potassium 3.5 MMOL/L (3.5-5.1)
--- NOTE | 2017-06-13 07:20 | EKG Report ---
Stationary ECG Study [facility] Test Date: 06/13/2017 7:19:47 AM Pat Name: MADINA RODRIGUEZ Department: Room: 263 Gender: F Form Drafter: MARGA : 1950 Requested by: Caden Chandler Order Number: [id number] Reading MD: CADEN CHANDLER Intervals [place] Rate: 87 P: 39 [place]: 119 QRS: 3 QRSD: 82 T: 21 QT: 421 QTc: 465 Interpretive Statements SINUS RHYTHM WITH SHORT NH INTERVAL WITH OCCASIONAL VENTRICULAR PREMATURE COMPLEXES VOLTAGE CRITERIA FOR LVH MODERATE ST DEPRESSION Electronically Signed On 06-14-17 18:35:08 CDT by CADEN CHANDLER [email or web address]
[2017-06-13 08:23] VITALS: BP 134/86
--- NOTE | 2017-06-13 08:47 | Ultrasound Report ---
Abdominal ultrasound Indication: Abdominal Pain Findings: The liver is normal in size and echogenicity. The gallbladder has been removed. The common bile duct measures 19 mm. The visualized portion of the pancreas appear within normal limits The kidneys normal in size and echogenicity without hydronephrosis or other abnormality. The right renal length is 8.5. Left renal length is 9.3. Spleen, aorta and IVC appear within normal limits. No free fluid or free air seen. Impression: Prominent common bile duct, patient has had previous cholecystectomy. No other evidence of abnormality demonstrated. Ultrasound images stored and captured. PROCEDURE INTERPRETED AT [facility] DEPARTMENT OF RADIOLOGY Final Report Signed by: Dr. Charly Rocha
[2017-06-13] MEDS ORDERED: CARVEDILOL 6.25 MG TABLET PO SCH (09:00)
[2017-06-13] MEDS: ASPIRIN EC 81 MG TABLET PO SCH (09:05)
[2017-06-13] MEDS: ATORVASTATIN 40 MG TABLET PO SCH (09:06)
[2017-06-13] MEDS: POTASSIUM CHLORIDE 20 MEQ TABLET PO SCH (09:06)
[2017-06-13] MEDS: hydrOXYzine HCL 25 MG TABLET PO SCH (09:06)
[2017-06-13] MEDS: TICAGRELOR 90 MG TABLET PO SCH (09:06)
[2017-06-13] MEDS: FAMOTIDINE 20 MG TABLET PO SCH (09:06)
[2017-06-13] MEDS: SPIRONOLACTONE 25 MG TABLET PO SCH (09:06)
[2017-06-13] MEDS: LUBIPROSTONE 24 MCG CAPSULE PO SCH (09:06)
[2017-06-13] MEDS: MULTIVITAMIN (CENTRUM) TABLET PO SCH (09:06)
[2017-06-13] MEDS: FLUoxetine 20 MG CAPSULE PO SCH (09:06)
--- NOTE | 2017-06-13 09:43 | Discharge Summary ---
Hospital Course - Hospital Course Hospital Course: Ms. Coleman is a 66-year-old female who was transferred to our facility with non-ST elevated myocardial infarction. She initially presented with mental status changes and was found to have 4 fentanyl patches on. She was incidentally noted to have elevated troponin suggesting non-STEMI with dyspnea on exertion and lower extremity swelling for several weeks suggestive of left and right heart failure. She had no acute EKG changes noted. She was taken for left heart catheterization to further define her coronary anatomy and had stent placement to the mid left circumflex and mid RCA with good results. She was observed postcatheterization overnight on the telemetry unit and has done well. Her right groin cath site looks good. Dressing was removed. She has no bleeding, hematoma, or bruit at the site. Femoral pulses 2+. She has some mild ecchymosis and tenderness at site. Distal pulses are present and palpable bilaterally. She will continue on dual antiplatelet therapy with aspirin and Brilinta. She will also continue statin and beta-leticia. She will follow-up with Dr. Garcia in 2 weeks. She will also need 15-20 mm knee- high support hose at discharge. She will be given a handwritten prescription for 1 year of Brilinta but an electronic prescription will be sent for the first month supply and she will be given the Brilinta discount card to get the first month for free. - Time spent with patient Time with patient DS: Greater than 30 minutes (due to discharge instructions, assessment, plan, and documentation) Diagnosis - Discharge Diagnosis (1) Non-ST elevated myocardial infarction (non-STEMI) Status: Acute (2) Hypertension Status: Chronic (3) Dyslipidemia Status: Chronic (4) Chronic pain Status: Chronic (5) CHF (congestive heart failure) Status: Acute (6) Constipated Status: Chronic Specialty Discharge - Follow Up or Referrals Follow up with: Dilshad Garcia MD [Physician] - 2 Weeks (Follow up with Dr. Garcia in 1-2 weeks with CBC, BMP w/ Mg, and EKG. ) Discharge Plan - Discharge Data Disposition: Disch To Home/Self Care Condition at Discharge: Stable Discharge Diet: heart healthy Activity: no lifting (Do not lift over 5 pounds 1 week.) Hygiene: may shower (Do not submerge cath site beneath water for 1 week.) Weight Bearing at Discharge: full weight bearing Contact your physician if you experience:: fever over 101, Difficulty voiding, Redness or swelling, Nausea/Vomiting, Shortness of breath, Bleeding, pain uncontrolled by pain medications - Discharge Medications New Atorvastatin [Lipitor] 40 mg PO DAILY #30 tablet Carvedilol [Coreg] 6.25 mg PO BID #60 tablet Ticagrelor [Brilinta] 90 mg PO BID #30 tablet Continue Multivit-Min/FA/Lycopen/Lutein [Centrum Silver Tablet] 1 each PO QAM Aspirin [Ecotrin] 81 mg PO QAM Beclomethasone 40 Mcg Inhaler [Qvar 40 Mcg] 120 mcg INH BID PRN PRN Reason: BREATHING Fluoxetine HCl [Prozac] 40 mg PO BID Ipratropium/Albuterol Inhaler [Combivent Respimat Inhaler] 3 puffs PO DAILY PRN PRN Reason: BREATHING Montelukast Sodium 10 mg PO BEDTIME Potassium Chloride 20 meq PO TID Spironolactone 25 mg PO BID Trazodone HCl 200 mg PO BEDTIME fentaNYL [Fentanyl 50 mcg/hr Patch] 1 each TRANSDERM Q3D Celecoxib [Celebrex] 200 mg PO QAM hydrOXYzine HCl [Hydroxyzine HCl] 25 mg PO TID Hydromorphone HCl 4 mg PO TID PRN PRN Reason: Pain Carisoprodol [Soma] 350 mg PO TID PRN PRN Reason: Pain raNITIdine HCl [Ranitidine HCl] 300 mg PO BID Indapamide 2.5 mg PO QAM Cholecalciferol [Vitamin D3] 1,000 unit PO BEDTIME Polyethylene Glycol Powder [Miralax] 34 gm PO DAILY PRN PRN Reason: Constipation Oxymetazoline 0.05% Nasal Spr [Afrin Nasal [place]] 2 spray BOTH NARES BID PRN PRN Reason: ALLERGIES Lubiprostone [Amitiza] 24 mcg PO BID W/MEALS fentaNYL [Fentanyl 100 mcg/hr Patch] 1 each TRANSDERM Q3D Changed Verapamil HCl [Verapamil ER Tab] 120 mg PO QAM #0 tablet Discontinued Verapamil HCl [Verapamil ER Tab] 240 mg PO QAM - Follow Up or Referral - Forms/Instructions Instructions: Myocardial Infarction (GEN), Left Heart Catheterization (DC), How to Stop Smoking (GEN), Heart Healthy Diet (GEN), Cigarette Smoking and Your Health (GEN), Coronary Intravascular Stent Placement (DC) Exam - Constitutional Vitals: Period Temp Pulse Resp BP Sys/Garrett Pulse Ox Last 24 Hr 97.8 F-98.4 F 64-86 16-20 109-173/51-93 93-100 Exam: General appearance: Appears well. Pleasant and cooperative. Overweight, no acute distress. Head exam: Present: normal inspection, normocephalic, atraumatic. Absent: hematoma, laceration Eye exam: Present: EOMI. Absent: conjunctival injection, nystagmus, periorbital swelling, scleral icterus, laceration to eyelids, jaundice Pupils: Present: PERRL. Absent: constricted, dilated, fixed, irregular, unequal ENT exam: Present: normal exam, normal external ear exam, mucous membranes moist. Neck exam: Present: normal inspection, midline trachea. Absent: masses, lymphadenopathy, tenderness, thyromegaly Respiratory exam: Present: clear to auscultation bilaterally. Absent: accessory muscle use, chest wall tenderness, rales, rhonchi, wheezing. Cardiovascular exam: Present: regular rate and rhythm. Absent: gallop, JVD, rubs, murmur GI/Abdominal exam: Present: normal bowel sounds, soft. Absent: distended, firm , hernia, mass, tenderness. Extremities exam: Present: Poor Gait (uses walker), No Clubbing, No Cyanosis, Upper Extr. Pulses 2+, Lower Extr. Pulses 2+, Trace BLE edema. Capillary refill less than 3 seconds. Musculoskeletal: Present: No Fluid Collection, No Pain, Normal Range of Motion Back exam: Present: normal inspection. Absent: muscle spasm, vertebral tenderness Neurological exam: Present: awake, alert, oriented X3, Moves all extremities well without hemiparesis or paralysis. Grossly intact without resting or essential tremor Psychiatric exam: Present: flat affect Skin exam: Present: normal color, warm, dry, intact. Absent: cyanosis, diaphoretic, rash, urticaria Discharge Results Procedures and tests throughout hospitalization: Pending Orders 06/12/17 07:31 CL heart Routine Left heart catheterization 06/12/17: FINDINGS: LV: 111/10 LVEDP: 17 Ao: 101/78 EF: 55% with no regional wall motion abnormality no gradient across the valve and no mitral regurgitation LM: A small vessel is angiographically normal LAD: There is a small vessel there is mild diffuse disease LCx: This is a nondominant vessel is relatively small and has an area of 80-90% focal stenosis in the mid left circumflex there is poststenotic dilatation. ROMMEL-3 flow in the vessel pre-and post PCI post PCI or 0% residual ROMMEL-3 flow RCA: This is a very small but dominant vessel. There is approximately 80% stenosis in the proximal portion of the midsegment pre-PCI with ROMMEL-3 flow post PCI or 0% residual stenosis with ROMMEL-3 flow. There is some poststenotic dilatation in this vessel. The vessel is diffusely diseased after the segment but is very small RFA/MONIQUE: These vessels are normal in immediate for closure no stenosis or plaque Assessment: 1. Two-vessel coronary disease status post successful PCI with 0% residual stenosis and ROMMEL-3 flow in both vessels in no apparent complication 2. Preserved cardiac volumes and ejection fraction with normal resting hemodynamics preserved ejection fraction PLAN: 1. Therapy lifestyle changes including and especially directed towards smoking cessation and aggressive risk factor modification pharmacologically 2. Dual antiplatelet therapy 3. Monitor for complications post PCI 4. Cardiac rehabilitation Implants: 2.5 x 20 mm Synergy drug-eluting stent in the mid RCA 2.5 x 15 mm Synergy in the mid left circumflex Angio-Seal closure right femoral arteriotomy Labs on day of discharge: Labs from last 24 hours 06/13/17 06/13/17 06/13/17 04:19 04:19 04:19 WBC 5.8 D RBC 4.57 Hgb 13.3 Hct 39.2 MCV 85.8 L MCH 29 MCHC 33.9 RDW 13.2 Plt Count 156 MPV 11.4 Neut % (Auto) 72.9 Lymph % (Auto) 16.1 L [place] % (Auto) 8.6 Eos % (Auto) 1.7 Baso % (Auto) 0.5 Neut # (Auto) 4.3 Lymph # (Auto) 0.9 L [place] # (Auto) 0.5 Eos # (Auto) 0.1 Baso # (Auto) 0.0 Immature Gran % 0.2 Nucleated RBC % 0.0 Immature Gran # 0.01 Nucleated RBCs # 0.00 Immature Plt Fraction 0.0 Sodium 135 L Potassium 3.5 Chloride 97 L Carbon Dioxide 29 Anion Gap 12.5 BUN 13 Creatinine 0.90 GFR Calculation 68 BUN/Creatinine Ratio 14.00 Glucose 105 Calculated Osmolality 269.1 L Calcium 9.4 Troponin I 0.763 H D 06/12/17 06/12/17 18:44 11:19 WBC RBC Hgb Hct MCV MCH MCHC RDW Plt Count MPV Neut % (Auto) Lymph % (Auto) [place] % (Auto) Eos % (Auto) Baso % (Auto) Neut # (Auto) Lymph # (Auto) [place] # (Auto) Eos # (Auto) Baso # (Auto) Immature Gran % Nucleated RBC % Immature Gran # Nucleated RBCs # Immature Plt Fraction Sodium Potassium Chloride Carbon Dioxide Anion Gap BUN Creatinine GFR Calculation BUN/Creatinine Ratio Glucose Calculated Osmolality Calcium Troponin I 1.700 H D 1.390 H DS: Provider Date of admission: 06/11/17 20:40 Primary care physician: . No PCP Attending physician on admission: Dilshad Espinal Consults: 06/12/17 06:56 Consult to Cardiac Rehabilitation [CONS] Routine Reason for Cardiac Rehabilitation: Other Consult Comment: Nstemi 06/12/17 10:37 Consult to Cardiac Rehabilitation [CONS] Routine Reason for Cardiac Rehabilitation: Risk Factor Modification Other Consult Comment: Evaluate and recommend Discharging clinician: AMELIA Jaffe Expected date of discharge: 06/13/17
--- NOTE | 2017-06-13 11:17 | Physician Query Form ---
CLICK EDIT DOCUMENT TO SELECT QUERY ANSWER --> OK --> SIGN Lali Maguire RN Clinical Data Security Coordinator W) [phone] (f) [phone] [email or web address] PROVIDERS: Make your selection(s) from the choices in EACH section by typing an "x" and enter comments in the comment section. Please use your independent medical judgment in providing your response. This request does not imply that any particular answer is desired or expected. CLINICAL INDICATORS: (Providers should not edit this section) Based on documentation of "Acute CHF" "dyspnea on exertion and lower extremity swelling for several weeks suggestive of left and right heart failure. She had no acute EKG changes noted" heart cath shows "EF: 55" history of CHF. BNP of 295. Treated with IV Lasix. Had heart cath with placement of two drug eluding stents. Please provide further specificity regarding CHF. ACUITY: (X) Acute ( ) Chronic ( ) Acute on Chronic ( ) Clinically unable to determine TYPE: ( ) Systolic (HFrEF - heart failure with reduced systolic function/EF) (X) Diastolic (HFpEF - heart failure with preserved systolic function/EF) ( ) Combined Systolic/Diastolic ( ) Other, please specify: ( ) Clinically unable to determine ( ) Past Medical History of Systolic CHF ( ) Past Medical History of Diastolic CHF (X) Clinically unable to determine - NO PRIOR HISTORY OF CHF PER OUR RECORDS. COMMENTS: No prior history of CHF, so assuming acute in nature. No echocardiogram done to determine diastolic dysfunction, but patient did have symptoms of heart failure with preserved systolic function during hospitalization. PLEASE ALSO DOCUMENT RESPONSE IN PROGRESS NOTES AND/OR DISCHARGE SUMMARY Use of terms such as suspected, likely, or probable (associated with a specific diagnosis that is being evaluated, monitored, or treated as if it exists) are acceptable and can be restated in the discharge summary if not ruled out. MTDD
== END 2017-06-13 14:30 | disposition home or self-care (01) | DRG 246 ==
LOC: EDBD → EDUNIT# → N.ED 15:45 → N.EDINP 20:40 → N.TELES 21:42
PROVIDERS: ADMIT Internal Medicine Cardiovascular Disease; ATTEND Internal Medicine Cardiovascular Disease
PROC: CLCCHCL (ICD-10-PCS; 2017-06-12 10:15)

== ENCOUNTER 2017-06-26 12:14 | Inpatient (IN) ==
--- NOTE | 2017-06-26 12:46 | Order Completion Report ---
See report scanned to EMR
[2017-06-26 13:01] LABS: Basophils # 0.1 10*3/uL (0.0-0.2); Basophils % 0.7 % (0.0-0.8); Eosinophils # 0.1 10*3/uL (0.0-0.87); Hematocrit 36.7 VOL% (35.7-47.0); Hemoglobin 12.5 GM/DL (12.0-16.0); Immature Granulocytes % 0.3 %; Immature Granulocytes Absolute 0.02 #; Lymphocytes # 0.8 10*3/uL (1.4-4.0); Lymphocytes % 11.1 % (21.3-54.2); Mean Corpuscular HGB Conc 34.1 GM/DL (32-36); Mean Corpuscular Hemoglobin 29 PG (27-34); Mean Corpuscular Volume 85.7 FL (87-102); Mean Platelet Volume 10.7 FL (9.6-12.0); Monocytes # 0.3 10*3/uL (0.11-0.8); Monocytes % 3.6 % (1.7-12.7); Neutrophils # 6.1 10*3/uL (1.4-7.4); Neutrophils % 83.3 % (38.7-73.9); Platelet Count 222 T/CUMM (130-400); Red Blood Count 4.28 MC/CUMM (3.8-5.5); Red Cell Distribution Width 13.3 % (9.3-17.3); White Blood Count 7.3 T/CUMM (4-12)
--- NOTE | 2017-06-26 13:10 | XRay Report ---
Exam: XR chest 1V Indication: Shortness of breath Comparison study: Prior chest radiograph 06/12/2017 Findings: Cardiac silhouette is partially obscured due to marked elevation left hemidiaphragm with interposition of the splenic flexure colon into the left upper chest, which otherwise appears similar to prior. There are passive atelectatic changes are again suggested within the perihilar region and left lung base. Upper lobe pulmonary vasculature does not appear engorged. There is no pneumothorax identified. Minimal perihilar and right basilar interstitial opacities are also noted and may represent atelectasis/scarring changes. Osseous structures appear similar to prior. Cervical stabilization hardware is noted. Impression: Chronic elevation of the left hemidiaphragm and interstitial scarring changes with probable perihilar and basilar passive atelectatic changes. Underlying infectious/inflammatory infiltrates are not excluded but favored to be less likely. PROCEDURE INTERPRETED AT [facility] [place] DEPARTMENT OF RADIOLOGY Final Report Signed by: Jairo Heard
[2017-06-26] MEDS ORDERED: FUROSEMIDE 40 MG/4 ML VIAL IV STA (13:15)
[2017-06-26] MEDS ORDERED: FUROSEMIDE 40 MG/4 ML VIAL ONE (13:33)
[2017-06-26 13:44] LABS: Alanine Aminotransferase 18 U/L (13-56); Albumin 3.6 G/DL (3.4-5.0); Alkaline Phosphatase 91 U/L (45-117); Aspartate Amino Transferase 17 U/L (0-37); Blood Urea Nitrogen 8 MG/DL (7-18); Calcium 9.2 MG/DL (8.5-10.1); Glucose 114 MG/DL (74-106); Magnesium 1.7 MG/DL (1.8-2.4); Osmolality,Calculated 255.1 MOS/KG (273-304); Potassium 3.9 MMOL/L (3.5-5.1); Sodium 128 MMOL/L (136-145); Total Protein 6.9 G/DL (6.4-8.3); Troponin I Only < 0.015 NG/ML (0.00-0.045)
--- NOTE | 2017-06-26 14:16 | Ultrasound Report ---
US venous doppler LE BI Indication: Lower extremity swelling. Comparison: None. Technique: Grayscale, spectral, and color Doppler interrogation of the bilateral lower extremity veins was performed. Augmentation and compression was performed. Findings: Grayscale, color Doppler, and pulsed Doppler evaluation of the veins of the bilateral lower extremity demonstrates no evidence of deep venous thrombosis. Popliteal cyst demonstrated on the left measuring up to 4.1 x 1.1 x 3.3 cm. IMPRESSION: No evidence of deep venous thrombosis in either lower extremity. PROCEDURE INTERPRETED AT [facility] [place] DEPARTMENT OF RADIOLOGY Final Report Signed by: Dr Dustin Hernandez
[2017-06-26 14:19] LABS: Apearance,Urine CLEAR (Clear); Bacteria,Urine Many /HPF (Few); Bilirubin,Urine Negative (Negative); Blood, Urine Small mg/dL (Negative); Glucose,Urine (UA) Negative (Negative); Ketones,Urine 5 mg/dL (Negative); Nitrite,Urine Negative (Negative); Protein,Urine Negative; Urine Color Straw (Yellow); Urine Specific Gravity 1.002 (1.001-1.035); Urine Urobilinogen < 2.0 EU/DL (0.2-1.0)
--- NOTE | 2017-06-26 14:48 | Emergency Department Note ---
Manuel Hendrickson Brittany, am scribing for, and in the presence of, Avery Mcdonald MD 12:55. Harry Hendrickson Phillip K, MD, personally performed the services described in this documentation, ascribed by Odilia Jackson in my presence, and it is both accurate and complete [id number] . Arrival - Arrival Chief Complaint: Shortness of Breath Stated Complaint: cp, leg swelling ED Nursing Triage Note: SHORTNESS OF BREATH, HX OF CHF, BILATERAL PEDAL EDEMA, 2 STENTS PLACED 06/10 Mode of Arrival: Wheelchair Limitations: No Limitations Source: Patient, RN Notes Reviewed Time Seen by Provider: 06/26/17 12:44 - History of Present Illness HPI Narrative: Patient is a 66 y/o white female with a history of CAD, CHF, HTN, [place], Asthma, Recurrent UTI, Osteoporosis and Cardiac Catheterization presenting to the ED with c/o shortness of breath and bilateral lower extremity edema which has been ongoing s/p having cardiac catheterization on 06/10, worsening in the last several days. Patient reports that on 06/10 she had [address] Olivas. She reports that the diuretic, spirinolactone she was discharged with has provided her with no relief. Patient notes that shortness of breath is worsened upon lying flat at night and on exertion. She has had some subjective fever and intermittent mild chest pains, but no chills or cough. Patient is a current everyday smoker. She lives at home alone. Patient has no further complaints. Allergies/Adverse Reactions: Allergies Allergy/AdvReac Type Severity Reaction Status Date / Time Cephalosporins AdvReac ANAPHYLAXIS Verified 06/26/17 12:26 Erythromycin Base AdvReac RASH Verified 06/26/17 12:26 naproxen AdvReac RASH Verified 06/26/17 12:26 Home Medications: Home Medications Medication Instructions Recorded Confirmed Type Aspirin [Ecotrin] 81 mg PO QAM 06/11/17 06/26/17 History Beclomethasone 40 Mcg Inhaler 120 mcg INH BID PRN 06/11/17 06/26/17 History [Qvar 40 Mcg] Carisoprodol [Soma] 350 mg PO TID PRN 06/11/17 06/26/17 History Celecoxib [Celebrex] 200 mg PO QAM 06/11/17 06/26/17 History Cholecalciferol [Vitamin D3] 1,000 unit PO BEDTIME 06/11/17 06/26/17 History Fluoxetine HCl [Prozac] 40 mg PO BID 06/11/17 06/26/17 History Hydromorphone HCl 4 mg PO TID PRN 06/11/17 06/26/17 History Indapamide 2.5 mg PO QAM 06/11/17 06/26/17 History Ipratropium/Albuterol Inhaler 3 puffs PO DAILY PRN 06/11/17 06/26/17 History [Combivent Respimat Inhaler] Lubiprostone [Amitiza] 24 mcg PO BID W/MEALS 06/11/17 06/26/17 History Montelukast Sodium 10 mg PO BEDTIME 06/11/17 06/26/17 History Multivit-Min/FA/Lycopen/Lutein 1 each PO QAM 06/11/17 06/26/17 History [Centrum Silver Tablet] Oxymetazoline 0.05% Nasal Spr 2 spray BOTH NARES BID PRN 06/11/17 06/26/17 History [Afrin Nasal [place]] Polyethylene Glycol Powder 34 gm PO DAILY PRN 06/11/17 06/26/17 History [Miralax] Potassium Chloride 20 meq PO TID 06/11/17 06/26/17 History Spironolactone 25 mg PO BID 06/11/17 06/26/17 History Trazodone HCl 200 mg PO BEDTIME 06/11/17 06/26/17 History fentaNYL [Fentanyl 100 mcg/hr 1 each TRANSDERM Q3D 06/11/17 06/26/17 History Patch] fentaNYL [Fentanyl 50 mcg/hr Patch] 1 each TRANSDERM Q3D 06/11/17 06/26/17 History hydrOXYzine HCl [Hydroxyzine HCl] 25 mg PO TID 06/11/17 06/26/17 History raNITIdine HCl [Ranitidine HCl] 300 mg PO BID 06/11/17 06/26/17 History Atorvastatin [Lipitor] 40 mg PO DAILY #30 tablet 06/13/17 06/26/17 Rx Carvedilol [Coreg] 6.25 mg PO BID #60 tablet 06/13/17 06/26/17 Rx Ticagrelor [Brilinta] 90 mg PO BID #30 tablet 06/13/17 06/26/17 Rx Verapamil HCl [Verapamil ER Tab] 120 mg PO QAM #0 tablet 06/13/17 06/26/17 Rx Review of System - Review of System 12 point system: reviewed and no additional remarkable complaints except as stated - Review of System Constitutional: Present: fever. Absent: chills Eyes: Absent: vision change Head/Ears/Nose/Throat: Absent: nasal drainage, sore throat Respiratory: Present: respiratory distress. Absent: cough Cardiovascular: Present: chest pain, dyspnea on exertion, orthopnea, edema Gastrointestinal: Absent: abdominal pain, nausea, vomiting, diarrhea, constipation, melena, hematochezia Genitourinary female: Absent: dysuria, frequency, urgency Musculoskeletal: Absent: arm pain, back pain, leg pain, neck pain Skin: Absent: rash Neurological: Absent: headache Psychiatric: Absent: anxiety, depression Hematological/Lymphatic: Absent: easy bleeding, easy bruising Medical,Surgical,& Family Hx - Medical History Cardio: History of: CHF, CAD, Hypertension, [place] Neurology: No history of: Seizures Respiratory: History of: Asthma Genitourinary: History of: Recurring Urinary Tract Infections Musculoskeletal: History of: Osteoporosis - Surgical History Cardiac Surgeries: Sugical HX of: Cardiac Catheterization (stent) - Family History Family History: noncontributory - Social History Smoking Status: Current every day smoker Frequency of Alcohol Use: Occasionally Type of Drug Use: Prescription Drug Abuse Marital Status: Single Lives With:: Alone Functional capacity: uses cane/walker Exam Vital Signs: Vital Signs Temperature 98.7 F 06/26/17 12:48 Pulse Rate 81 06/26/17 14:15 Respiratory Rate 19 06/26/17 13:46 Blood Pressure 124/78 06/26/17 14:15 O2 Sat by Pulse Oximetry 95 06/26/17 14:15 - General General appearance: alert, in no apparent distress - Head Head exam: Present: atraumatic, normocephalic, normal inspection - Eye Eye exam: Present: normal appearance, PERRL, EOMI - ENT ENT exam: Present: normal exam, normal oropharynx - Neck Neck exam: Present: normal inspection, full ROM, trachea midline - Chest Chest inspection: Present: normal inspection, symmetric chest wall rise - Respiratory Respiratory exam: Present: rales (few basilar rales bilaterally). Absent: normal lung sounds bilaterally, respiratory distress - Cardiovascular Cardiovascular exam: Present: regular rate, normal rhythm, normal heart sounds. Absent: murmur, rubs, gallop - Abdominal Exam Abdominal exam: Present: soft, tenderness (mid-lower abdominal TTP), normal bowel sounds. Absent: distention - Extremities Exam Extremities exam: Present: pedal edema (4+ edema to bilateral lower extremities including the thighs). Absent: normal inspection (ecchymosis to the R thigh) - Back Exam Back exam: Absent: normal inspection (Kyphosis) - Neurological Exam Neurological exam: Present: alert, oriented X3, CN II-XII intact. Absent: motor sensory deficit - Psychiatric Psychiatric exam: Present: normal affect, normal mood - Skin Skin exam: Present: warm, dry Course Course Narrative: Patient discussed with the hospitalist. Results - Labs CBC & BMP: 06/26/17 12:59 06/26/17 12:59 Lab Results: I have reviewed the patients labs Labs: Laboratory Tests 06/26/17 12:59 WBC 7.3 RBC 4.28 Hgb 12.5 Hct 36.7 MCV 85.7 L Plt Count 222 Neut % (Auto) 83.3 H Lymph % (Auto) 11.1 L Lymph # (Auto) 0.8 L Laboratory Tests 06/26/17 12:59 Sodium 128 L Potassium 3.9 Chloride 91 L Carbon Dioxide 27 BUN 8 Creatinine 0.90 Glucose 114 H Calculated Osmolality 255.1 L Magnesium 1.7 L Troponin I < 0.015 Albumin/Globulin Ratio 1.0 L Laboratory Tests 06/26/17 06/26/17 12:59 13:55 B-Natriuretic Peptide 223 H Urine Color Straw Urine Appearance Clear Urine pH 5.0 Ur Specific [place] 1.002 Urine Protein Negative Urine Glucose (UA) Negative Urine Ketones 5 Urine Blood Small Urine Nitrate Negative Urine Bilirubin Negative Urine Urobilinogen < 2.0 H Urine Leukocytes Negative Urine Bacteria Many - EKG EKG results: interpreted by ERMWalter, sinus rhythm (Premature supraventricular complexes) - Diagnostic Findings Procedure: Chest x-ray: report reviewed by me (Chronic elevation of the left hemidiaphragm and interstitial scarring changes with probable perihilar and basilar passive atelectatic changes. Underlying infectious/inflammatory infiltrates are not excluded but favored to be less likely.), Ultrasound: report reviewed by me (Venous Doppler US: No evidence of deep venous thrombosis in either lower extremity.) Disposition Clinical Impression: Hyponatremia, Peripheral edema, Urinary tract infection Case discussed with: patient Disposition: Still a Patient Condition: Guarded Additional Instructions: Admit to the hospitalist.
[2017-06-26] MEDS ORDERED: LEVOFLOXACIN INJ 500 MG in PREMIX 1 EACH IV STA (14:58)
[2017-06-26] MEDS ORDERED: LEVOFLOXACIN INJ 100 ML IV ONE (15:12)
[2017-06-26] MEDS ORDERED: ACETAMINOPHEN 325 MG TABLET PO PRN (15:28)
[2017-06-26] MEDS ORDERED: NICOTINE 21 MG/24 HR PATCH TRANSDERM PRN (15:28)
[2017-06-26] MEDS ORDERED: LEVOFLOXACIN INJ 500 MG in PREMIX 1 EACH IV SCH (15:30)
[2017-06-26] MEDS ORDERED: POLYETHYLENE GLYCOL POWDER 17 GM PACK PO PRN (15:30)
[2017-06-26] MEDS ORDERED: ENOXAPARIN 40 MG/0.4 ML SYRINGE SUBCUT SCH (15:30)
[2017-06-26 15:53] LABS: Risk Ratio 2.18; VLDL CHOLESTEROL 12.4 MG/DL
--- NOTE | 2017-06-26 16:35 | Hospitalist History & Physical ---
<Chelsea Mendiola - Last Filed: 06/26/17 16:28> Assessment and Plan (1) Living alone Status: Acute Assessment and plan: At the time of encounter, family members were present at the bedside. The patient reported that she currently lives alone however, she has had difficulty providing care for herself in recent months. The family member reported that both she and the patient had discussed custodial home facility placement. They have requested case management referral to assist in custodial facility placement at the time of discharge. Current Visit: Yes (2) Hyponatremia Status: Acute Assessment and plan: Sodium noted at 128 at the time of ED encounter. We will start sodium chloride tablets daily and recheck CMP in a.m. Current Visit: Yes (3) Urinary tract infection Status: Acute Assessment and plan: Urinalysis at the time of admission remarkable for the presence of urinary tract infection. Urine cultures have been obtained. We will start Levaquin 500 milligrams IV daily. Current Visit: Yes (4) CHF (congestive heart failure) Status: Acute Assessment and plan: The patient's congestive heart failure is chronic in nature. BNP was noted at 223. She is followed in the outpatient setting by Dr. Anay Olivas. The patient recently underwent cardiac catheterization with stent placement on May. At that time, the patient's ejection fraction was estimated at 55% with no regional wall abnormality or gradient across the valve and no mitral valve regurgitation was noted. The patient reports medication compliance however, this may not be the case. At the time of assessment, the patient was noted to be experiencing shortness of breath and grossly edematous with +4 edema noted to the bilateral lower extremities. The patient was diuresed in the ED and was noted to have a urinary output of more than 2 L. We will review the patient's home medications and reconciled accordingly. We will continue gentle diuresis and recheck BNP and CMP in a.m. A cardiology consultation has been requested. Current Visit: No (5) Hypomagnesemia Status: Acute Assessment and plan: Magnesium noted at 1.7. We will start the electrolyte protocol, correct the deficit, and recheck magnesium level in a.m. Current Visit: Yes History of Present Illness Chief complaint: Shortness of breath History of present illness: This is a chronically ill 66-year-old female that presented to the ED at [facility] this afternoon for the evaluation of shortness of breath. The patient has a medical history significant for coronary artery disease, congestive heart failure, hypertension, myocardial infarction, osteoporosis, chronic back pain, chronic urinary tract infections, prescription drug abuse, and nicotine addiction. Patient has a surgical history significant for multiple back surgeries and cardiac catheterization with stent placement. The patient reported the onset of symptoms 3 days prior to presentation. The patient reported that she had recently underwent cardiac catheterization with stent placement by Dr. Anay Olivas and that she had been experiencing symptoms similar in nature since her subsequent discharge. The patient reports medication compliance however, she reports that her shortness of breath and lower extremity edema has worsened. She reports an inability to lie flat and dyspnea upon minimal exertion. In addition, the patient reports subjective fever and intermittent chest pains however, denies cough, chills, headache, and visual disturbances. The patient was actually scheduled for her cardiology follow-up appointment today when she started to experience an increase in shortness of breath prompting her to present to the ED for further evaluation. The patient was assessed at the time of ED presentation. Labs were obtained which were significant for sodium 128, chloride 91, glucose 114, calculated osmolality 255.1, magnesium 1.7, HDL cholesterol 74. Urinalysis was remarkable for urine blood small, urine urobilinogen greater than 2.0, urine leukocytes negative, urine bacteria many. Chest x-ray reported chronic elevation of the left hemidiaphragm and interstitial scarring changes with probable perihilar and basilic passive atelectatic changes. In addition, underlying infectious/ inflammatory infiltrates are not excluded but favored to be less likely. Venous Doppler studies were essentially negative for the presence of deep vein thrombosis in bilateral lower extremities. After brief discussion with both Dr. Mcdonald and Dr. Jeffrey, the patient will be admitted to the hospitalist service for continuation of care. Due to the severity of the patient's cardiovascular disease, a cardiology consultation has been requested to evaluate and assist during the clinical encounter. Home medications have been reviewed and reconciled. CODE STATUS discussed; patient is a FULL CODE. Home Medications Medication Instructions Recorded Confirmed Type Aspirin [Ecotrin] 81 mg PO QAM 06/11/17 06/26/17 History Beclomethasone 40 Mcg Inhaler 120 mcg INH BID PRN 06/11/17 06/26/17 History [Qvar 40 Mcg] Carisoprodol [Soma] 350 mg PO TID PRN 06/11/17 06/26/17 History Celecoxib [Celebrex] 200 mg PO QAM 06/11/17 06/26/17 History Cholecalciferol [Vitamin D3] 1,000 unit PO BEDTIME 06/11/17 06/26/17 History Fluoxetine HCl [Prozac] 40 mg PO BID 06/11/17 06/26/17 History Hydromorphone HCl 4 mg PO TID PRN 06/11/17 06/26/17 History Indapamide 2.5 mg PO QAM 06/11/17 06/26/17 History Ipratropium/Albuterol Inhaler 3 puffs PO DAILY PRN 06/11/17 06/26/17 History [Combivent Respimat Inhaler] Lubiprostone [Amitiza] 24 mcg PO BID W/MEALS 06/11/17 06/26/17 History Montelukast Sodium 10 mg PO BEDTIME 06/11/17 06/26/17 History Multivit-Min/FA/Lycopen/Lutein 1 each PO QAM 06/11/17 06/26/17 History [Centrum Silver Tablet] Oxymetazoline 0.05% Nasal Spr 2 spray BOTH NARES BID PRN 06/11/17 06/26/17 History [Afrin Nasal [place]] Polyethylene Glycol Powder 34 gm PO DAILY PRN 06/11/17 06/26/17 History [Miralax] Potassium Chloride 20 meq PO TID 06/11/17 06/26/17 History Spironolactone 25 mg PO BID 06/11/17 06/26/17 History Trazodone HCl 200 mg PO BEDTIME 06/11/17 06/26/17 History fentaNYL [Fentanyl 100 mcg/hr 1 each TRANSDERM Q3D 06/11/17 06/26/17 History Patch] fentaNYL [Fentanyl 50 mcg/hr Patch] 1 each TRANSDERM Q3D 06/11/17 06/26/17 History hydrOXYzine HCl [Hydroxyzine HCl] 25 mg PO TID 06/11/17 06/26/17 History raNITIdine HCl [Ranitidine HCl] 300 mg PO BID 06/11/17 06/26/17 History Atorvastatin [Lipitor] 40 mg PO DAILY #30 tablet 06/13/17 06/26/17 Rx Carvedilol [Coreg] 6.25 mg PO BID #60 tablet 06/13/17 06/26/17 Rx Ticagrelor [Brilinta] 90 mg PO BID #30 tablet 06/13/17 06/26/17 Rx Verapamil HCl [Verapamil ER Tab] 120 mg PO QAM #0 tablet 06/13/17 06/26/17 Rx Allergies Allergy/AdvReac Type Severity Reaction Status Date / Time Cephalosporins AdvReac ANAPHYLAXIS Verified 06/26/17 12:26 Erythromycin Base AdvReac RASH Verified 06/26/17 12:26 naproxen AdvReac RASH Verified 06/26/17 12:26 Medical,Surgical,& Family Hx - Medical History Cardio: History of: CHF, CAD, Hypertension, ID Neurology: No history of: Seizures Endocrine: History of: Dyslipidemia Respiratory: History of: Asthma Genitourinary: History of: Recurring Urinary Tract Infections Musculoskeletal: History of: Osteoporosis - Surgical History Cardiac Surgeries: Sugical HX of: Cardiac Catheterization (stent) - Family History Family History: Reports;: Family Cancer, Family Diabetes, Family Heart Disease - Social History Smoking Status: Current every day smoker Have you smoked in the last 12 months: Yes Time spent discussing smoking cessation with patient: 3 to 10 minutes Frequency of Alcohol Use: Occasionally Type of Drug Use: Prescription Drug Abuse Marital Status: Single Lives With:: Alone Functional capacity: uses cane/walker 12 point system: reviewed and no additional remarkable complaints except as stated Exam - Constitutional Vitals: Period Temp Pulse Resp BP Sys/Garrett Pulse Ox Last 24 Hr 98.7 F-98.7 F 77-87 17-22 123-144/48-98 95-100 General appearance: no acute distress, over weight - Head Head exam: Present: normal inspection, normocephalic, atraumatic - Eye Eye exam: Present: EOMI. Absent: conjunctival injection Pupils: Present: ERVIN, normal accommodation - ENT ENT exam: Present: normal exam, normal external ear exam, normal oropharynx - Neck Neck exam: Present: normal inspection. Absent: lymphadenopathy, meningismus, thyromegaly - Respiratory Respiratory exam: Present: rales (Basilar rales noted bilaterally). Absent: accessory muscle use, chest wall tenderness - Cardiovascular Cardiovascular exam: Present: regular rate and rhythm. Absent: carotid bruit, diastolic murmur, gallop, JVD, systolic murmur, tachycardia - GI/Abdominal GI/Abdominal exam: Present: normal bowel sounds, soft - Extremities Exam Extremities exam: Present: edema (+4 edema noted to bilateral lower extremities extending upward involving bilateral thighs) - Back Exam Back exam: Present: other (Kyphosis) - Neurological Exam Neurological exam: Present: alert, oriented X3, CN II-XII intact - Psychiatric Psychiatric exam: Present: flat affect - Skin Skin exam: Present: normal color, warm, dry Results - Labs CBC & BMP: 06/26/17 12:59 06/26/17 12:59 Lab Results: I have reviewed the past 24 hour labs <Kell Jeffrey - Last Filed: 06/26/17 17:13> History of Present Illness History of present illness: Patient seen and examined independently of TWYLA Mendiola, agree with history, assessment and plan as documented. Patient presents with sob and BLE edema. BNP mildly elevated. Start lasix. Dopplers negative for clots. Obtain echo. Legs are warm with mild redness. Start clindamycin. Exam - Constitutional Vitals: Period Temp Pulse Resp BP Sys/Garrett Pulse Ox Last 24 Hr 98.7 F-98.7 F 77-87 17-22 123-144/48-98 95-100 Results - Labs CBC & BMP: 06/26/17 12:59 06/26/17 12:59
[2017-06-26] MEDS ORDERED: ONDANSETRON 4 MG/2 ML VIAL IV STA (17:45)
[2017-06-26] MEDS ORDERED: INFLUENZA VIRUS VACCINE 0.5 ML SYRINGE IM ONE (18:53)
[2017-06-26] MEDS: LUBIPROSTONE 24 MCG CAPSULE PO SCH (18:53)
[2017-06-26] MEDS: POTASSIUM CHLORIDE 20 MEQ TABLET PO SCH (20:33)
[2017-06-26] MEDS: ASPIRIN EC 81 MG TABLET PO SCH (20:34)
[2017-06-26] MEDS: CHOLECALCIFEROL 1,000 UNIT TABLET PO SCH (20:34)
[2017-06-26] MEDS: DOCUSATE SODIUM 100 MG CAPSULE PO SCH (20:34)
[2017-06-26] MEDS: SPIRONOLACTONE 25 MG TABLET PO SCH (20:34)
[2017-06-26] MEDS: FLUoxetine 20 MG CAPSULE PO SCH (20:34)
[2017-06-26] MEDS: FAMOTIDINE 20 MG TABLET PO SCH (20:34)
[2017-06-26] MEDS: TICAGRELOR 90 MG TABLET PO SCH (20:34)
[2017-06-26] MEDS: MONTELUKAST 10 MG TABLET PO SCH (20:35)
[2017-06-26] MEDS: CARVEDILOL 6.25 MG TABLET PO SCH (20:35)
[2017-06-26] MEDS: CLINDAMYCIN INJ 600 MG in PREMIX 1 EACH IV SCH (20:37)
[2017-06-26] MEDS ORDERED: SODIUM CHLORIDE 1 GM TABLET PO SCH (21:00)
[2017-06-26] MEDS ORDERED: BECLOMETHASONE 40 MCG/PUFF INHALER 8.7 GM INH PRN (21:00)
[2017-06-26] MEDS: ZALEPLON 5 MG CAPSULE PO PRN (22:31)
[2017-06-27] MEDS: CLINDAMYCIN INJ 600 MG in PREMIX 1 EACH IV SCH ×3 (04:20→20:57)
--- NOTE | 2017-06-27 07:42 | XRay Report ---
XR chest 1V portable Indication: Shortness of breath Comparison: 26 June 2017 Findings: The heart and mediastinum are similar in size and configuration with elevation left hemidiaphragm. The pulmonary vascularity is normal in caliber. Left lower lung density and volume loss is similar to previous exam. No other lung infiltrates, effusions, pneumothorax or other abnormality is demonstrated. Impression: No significant changes. PROCEDURE INTERPRETED AT [facility] DEPARTMENT OF RADIOLOGY Final Report Signed by: Dr. Charly Rocha
[2017-06-27 08:07] LABS: Basophils % 0.8 % (0.0-0.8); Eosinophils # 0.1 10*3/uL (0.0-0.87); Eosinophils % 1.8 % (0.00-10.9); Hematocrit 32.8 VOL% (35.7-47.0); Hemoglobin 11.3 GM/DL (12.0-16.0); Immature Granulocytes % 0.4 %; Immature Granulocytes Absolute 0.02 #; Lymphocytes # 1.1 10*3/uL (1.4-4.0); Lymphocytes % 21.4 % (21.3-54.2); Mean Corpuscular HGB Conc 34.5 GM/DL (32-36); Mean Corpuscular Hemoglobin 30 PG (27-34); Mean Corpuscular Volume 85.6 FL (87-102); Mean Platelet Volume 10.9 FL (9.6-12.0); Monocytes # 0.5 10*3/uL (0.11-0.8); Monocytes % 9.3 % (1.7-12.7); Neutrophils # 3.4 10*3/uL (1.4-7.4); Neutrophils % 66.3 % (38.7-73.9); Platelet Count 189 T/CUMM (130-400); Red Blood Count 3.83 MC/CUMM (3.8-5.5); Red Cell Distribution Width 13.2 % (9.3-17.3); White Blood Count 5.1 T/CUMM (4-12)
[2017-06-27 08:39] LABS: Albumin 3.1 G/DL (3.4-5.0); Bilirubin,Total 0.5 MG/DL (0.2-1.0); Calcium 8.6 MG/DL (8.5-10.1); Magnesium 1.8 MG/DL (1.8-2.4); Osmolality,Calculated 258.8 MOS/KG (273-304); Potassium 3.5 MMOL/L (3.5-5.1); Total Protein 5.5 G/DL (6.4-8.3)
[2017-06-27] MEDS ORDERED: SODIUM CHLORIDE 1 GM TABLET PO SCH (09:00)
[2017-06-27] MEDS: CELECOXIB 200 MG CAPSULE PO SCH (09:50)
[2017-06-27] MEDS: POTASSIUM CHLORIDE 20 MEQ TABLET PO SCH ×3 (09:51→20:56)
[2017-06-27] MEDS: ATORVASTATIN 40 MG TABLET PO SCH (09:51)
[2017-06-27] MEDS: DOCUSATE SODIUM 100 MG CAPSULE PO SCH ×2 (09:51→20:56)
[2017-06-27] MEDS: TICAGRELOR 90 MG TABLET PO SCH ×2 (09:52→20:56)
[2017-06-27] MEDS: LUBIPROSTONE 24 MCG CAPSULE PO SCH ×2 (09:52→17:28)
[2017-06-27] MEDS: SPIRONOLACTONE 25 MG TABLET PO SCH ×2 (09:52→20:56)
[2017-06-27] MEDS: CARVEDILOL 6.25 MG TABLET PO SCH ×2 (09:52→20:56)
[2017-06-27] MEDS: PANTOPRAZOLE 40 MG TABLET PO SCH (09:53)
[2017-06-27] MEDS: VERAPAMIL SR 120 MG TABLET PO SCH (09:53)
[2017-06-27] MEDS: INDAPAMIDE 2.5 MG TABLET PO SCH (09:53)
[2017-06-27] MEDS: FUROSEMIDE 40 MG/4 ML VIAL IV SCH ×2 (09:54→16:17)
[2017-06-27] MEDS: MULTIVITAMIN (CENTRUM) TABLET PO SCH (09:54)
[2017-06-27] MEDS: FLUoxetine 20 MG CAPSULE PO SCH ×2 (10:03→20:56)
[2017-06-27] MEDS: FAMOTIDINE 20 MG TABLET PO SCH ×2 (10:03→20:56)
--- NOTE | 2017-06-27 14:06 | Hospitalist Progress Note ---
Assessment and Plan (1) Cellulitis Status: Acute Assessment and plan: Of BLE Improving with clindamycin Current Visit: Yes (2) CHF (congestive heart failure) Status: Acute Assessment and plan: F/u echo Continue lasix Current Visit: No (3) Hypertension Status: Chronic Assessment and plan: Continue home meds Current Visit: No (4) Dyslipidemia Status: Chronic Assessment and plan: Continue statin Current Visit: No (5) Peripheral edema Status: Acute Assessment and plan: Concern that this is due to heart failure Dopplers negative F/u echo Improving with lasix Current Visit: Yes Hospitalist: Subjective Interval history: No acute events overnight. Patient reports that her legs look much better. She has just developed a cough. Exam - Constitutional Vitals: Period Temp Pulse Resp BP Sys/Garrett Pulse Ox Last 24 Hr 96.9 F-98.3 F 66-118 17-22 86-142/48-91 90-100 General appearance: over weight - Head Head exam: Present: normocephalic, atraumatic - Eye Eye exam: Present: EOMI Pupils: Present: ERVIN - ENT ENT exam: Present: normal exam - Neck Neck exam: Present: normal inspection - Respiratory Respiratory exam: Present: clear to auscultation bilaterally. Absent: rhonchi, wheezes - Cardiovascular Cardiovascular exam: Present: regular rate and rhythm - GI/Abdominal GI/Abdominal exam: Present: normal bowel sounds, soft. Absent: tenderness, rebound - Extremities Exam Extremities exam: Present: normal inspection - Back Exam Back exam: Present: normal inspection - Neurological Exam Neurological exam: Present: alert, oriented X3 - Psychiatric Psychiatric exam: Present: normal affect, normal mood - Skin Skin exam: Present: warm, intact Results - Labs CBC & BMP: 06/27/17 07:06 06/27/17 07:06
[2017-06-27] MEDS: ONDANSETRON 4 MG/2 ML VIAL IV PRN (17:27)
--- NOTE | 2017-06-27 18:15 | Order Completion Report ---
See report scanned to EMR
[2017-06-27] MEDS: CHOLECALCIFEROL 1,000 UNIT TABLET PO SCH (20:56)
[2017-06-27] MEDS: MONTELUKAST 10 MG TABLET PO SCH (20:56)
[2017-06-27] MEDS: ASPIRIN EC 81 MG TABLET PO SCH (20:56)
[2017-06-27] MEDS: ZALEPLON 5 MG CAPSULE PO PRN (22:53)
[2017-06-28] MEDS: fentaNYL 100 MCG/HR PATCH TRANSDERM SCH (00:09)
[2017-06-28] MEDS: fentaNYL 50 MCG/HR PATCH TRANSDERM SCH (00:13)
[2017-06-28] MEDS: CLINDAMYCIN INJ 600 MG in PREMIX 1 EACH IV SCH ×3 (04:45→20:07)
[2017-06-28 05:33] LABS: Basophils % 0.1 % (0.0-0.8); Eosinophils % 0.1 % (0.00-10.9); Hematocrit 34.7 VOL% (35.7-47.0); Hemoglobin 12.2 GM/DL (12.0-16.0); Immature Granulocytes % 0.6 %; Immature Granulocytes Absolute 0.08 #; Lymphocytes # 0.5 10*3/uL (1.4-4.0); Lymphocytes % 3.4 % (21.3-54.2); Mean Corpuscular HGB Conc 35.2 GM/DL (32-36); Mean Corpuscular Hemoglobin 30 PG (27-34); Mean Corpuscular Volume 84.2 FL (87-102); Monocytes # 0.7 10*3/uL (0.11-0.8); Monocytes % 5.2 % (1.7-12.7); Neutrophils % 90.6 % (38.7-73.9); Platelet Count 207 T/CUMM (130-400); Red Blood Count 4.12 MC/CUMM (3.8-5.5); Red Cell Distribution Width 13.2 % (9.3-17.3); White Blood Count 14.3 T/CUMM (4-12)
[2017-06-28 05:57] LABS: Band Neutrophils 4 % (0-10); Hypochromasia 2+; Lymphocytes 2 % (20-55); Segmented Neutrophils 89 % (50-85); Total Cells Counted 100
[2017-06-28 05:58] LABS: Microcytosis 1+; Platelet Estimate Normal
[2017-06-28 06:04] LABS: Calcium 8.5 MG/DL (8.5-10.1); Magnesium 1.7 MG/DL (1.8-2.4); Osmolality,Calculated 259.9 MOS/KG (273-304); Potassium 3.3 MMOL/L (3.5-5.1)
--- NOTE | 2017-06-28 08:56 | XRay Report ---
History: Shortness of breath and cough Date: 06/28/2017 Study: Chest x-ray AP portable Comparison exam: 06/27/2017 There is stable mild cardiomegaly. The mediastinal contour is unchanged. The pulmonary vasculature is not engorged. There is continued atelectatic change in the left lower lung with prominent elevation of the left hemidiaphragm. There is improved aeration of the right lung base compared to the previous study, with only mild residual strandy atelectasis/infiltrate persisting. There is no gross pleural effusion. Surgical hardware overlies the cervicothoracic junction. Osseous structures are otherwise unchanged. Impression: Considerably improved aeration in the right lung base compared to the previous study. Otherwise unchanged PROCEDURE INTERPRETED AT [facility] DEPARTMENT OF RADIOLOGY Final Report Signed by: Dr. Anitha Preston
[2017-06-28] MEDS: PANTOPRAZOLE 40 MG TABLET PO SCH (09:56)
[2017-06-28] MEDS: VERAPAMIL SR 120 MG TABLET PO SCH (09:56)
[2017-06-28] MEDS: LUBIPROSTONE 24 MCG CAPSULE PO SCH ×2 (09:56→16:07)
[2017-06-28] MEDS: TICAGRELOR 90 MG TABLET PO SCH ×2 (09:56→20:05)
[2017-06-28] MEDS: ATORVASTATIN 40 MG TABLET PO SCH (09:57)
[2017-06-28] MEDS: FLUoxetine 20 MG CAPSULE PO SCH ×2 (09:57→20:05)
[2017-06-28] MEDS: MULTIVITAMIN (CENTRUM) TABLET PO SCH (09:57)
[2017-06-28] MEDS: DOCUSATE SODIUM 100 MG CAPSULE PO SCH ×2 (09:58→20:05)
[2017-06-28] MEDS: INDAPAMIDE 2.5 MG TABLET PO SCH (09:58)
[2017-06-28] MEDS: SPIRONOLACTONE 25 MG TABLET PO SCH ×2 (09:58→20:06)
[2017-06-28] MEDS: FUROSEMIDE 40 MG/4 ML VIAL IV SCH ×2 (09:59→15:31)
[2017-06-28] MEDS: POTASSIUM CHLORIDE 20 MEQ TABLET PO SCH ×3 (09:59→20:05)
[2017-06-28] MEDS: FAMOTIDINE 20 MG TABLET PO SCH ×2 (09:59→20:05)
[2017-06-28] MEDS: CARVEDILOL 6.25 MG TABLET PO SCH ×2 (09:59→20:06)
[2017-06-28] MEDS: CELECOXIB 200 MG CAPSULE PO SCH (10:00)
--- NOTE | 2017-06-28 10:00 | Physician Query Form ---
CLICK EDIT DOCUMENT TO SELECT QUERY ANSWER --> OK --> SIGN Renate Fernandes RN Clinical Bakery Decorator W) [phone] (f) [phone] [email or web address] PROVIDERS: Make your selection(s) from the choices in EACH section by typing an "x" and enter comments in the comment section. Please use your independent medical judgment in providing your response. This request does not imply that any particular answer is desired or expected. CLINICAL INDICATORS: (Providers should not edit this section) Based on documentation of "acute CHF", IPR=[id number], Echo showed EF of 65%. Pt. treated with IV Lasix. Please provide further specificity regarding CHF. TYPE: ( ) Systolic (HFrEF - heart failure with reduced systolic function/EF) ( X) Diastolic (HFpEF - heart failure with preserved systolic function/EF) ( ) Combined Systolic/Diastolic ( ) Other, please specify: ( ) Clinically unable to determine COMMENTS: PLEASE ALSO DOCUMENT RESPONSE IN PROGRESS NOTES AND/OR DISCHARGE SUMMARY Use of terms such as suspected, likely, or probable (associated with a specific diagnosis that is being evaluated, monitored, or treated as if it exists) are acceptable and can be restated in the discharge summary if not ruled out. MTDD
--- NOTE | 2017-06-28 10:04 | Physician Query Form ---
CLICK EDIT DOCUMENT TO SELECT QUERY ANSWER --> OK --> SIGN Renate Fernandes RN Clinical On Awake Counselor W) [phone] (f) [phone] [email or web address] PROVIDERS: Make your selection(s) from the choices in EACH section by typing an "x" and enter comments in the comment section. Please use your independent medical judgment in providing your response. This request does not imply that any particular answer is desired or expected. CLINICAL INDICATORS: (Providers should not edit this section) Pt. admitted with CHF and diuresed with IV Lasix. Creatinine on admission of 0.90 and increased to 1.20 with a GFR of 50. Clarify which of the following most accurately represents the patient's renal status: (x ) Acute kidney injury (non-traumatic) ( ) Acute renal failure ( ) Acute renal failure with underlying Chronic Kidney Disease (CKD) - please provide stage below ( ) CKD - please provide stage below ( ) Other, please specify: ( ) Clinically unable to determine Chronic Kidney Disease Stages Source: National Kidney Disease Foundation ( ) Stage I (eGFR > or = 90) ( ) Stage II (eGFR 60 - 89) ( ) Stage III (eGFR 30 - 59) ( ) Stage IV (eGFR 15 - 29) ( ) Stage V (eGFR < 15 or dialysis) COMMENTS: PLEASE ALSO DOCUMENT RESPONSE IN PROGRESS NOTES AND/OR DISCHARGE SUMMARY Use of terms such as suspected, likely, or probable (associated with a specific diagnosis that is being evaluated, monitored, or treated as if it exists) are acceptable and can be restated in the discharge summary if not ruled out. MTDD
[2017-06-28] MEDS ORDERED: MAGNESIUM SULF RIDER 4 GM in PREMIX 1 EACH IV PRN (11:01)
[2017-06-28] MEDS ORDERED: MAGNESIUM SULF RIDER 2 GM in PREMIX 1 EACH IV PRN (11:01)
--- NOTE | 2017-06-28 18:18 | Hospitalist Progress Note ---
Assessment and Plan (1) Cellulitis Status: Acute Assessment and plan: Of BLE Improving with clindamycin Current Visit: Yes (2) CHF (congestive heart failure) Status: Acute Assessment and plan: Continue lasix Current Visit: No (3) Hypertension Status: Chronic Assessment and plan: Continue home meds Current Visit: No (4) Dyslipidemia Status: Chronic Assessment and plan: Continue statin Current Visit: No (5) Peripheral edema Status: Acute Assessment and plan: Concern that this is due to heart failure Dopplers negative F/u echo Improving with lasix Current Visit: Yes Hospitalist: Subjective Interval history: No acute events overnight. Patient feeling better, LE edema is improving. She is interested in swing bed or fpc placement. Exam - Constitutional Vitals: Period Temp Pulse Resp BP Sys/Garrett Pulse Ox Last 24 Hr 10 F-97.9 F 65-88 18-22 93-120/50-69 90-97 General appearance: normal weight - Head Head exam: Present: normocephalic, atraumatic - Eye Eye exam: Present: EOMI Pupils: Present: ERVIN - ENT ENT exam: Present: normal exam - Neck Neck exam: Present: normal inspection - Respiratory Respiratory exam: Present: clear to auscultation bilaterally. Absent: wheezes - Cardiovascular Cardiovascular exam: Present: regular rate and rhythm - GI/Abdominal GI/Abdominal exam: Present: normal bowel sounds, soft. Absent: tenderness, rebound - Extremities Exam Extremities exam: Present: normal inspection - Back Exam Back exam: Present: normal inspection - Neurological Exam Neurological exam: Present: alert, oriented X3 - Psychiatric Psychiatric exam: Present: normal affect, normal mood - Skin Skin exam: Present: warm, intact Results - Labs CBC & BMP: 06/28/17 05:12 06/28/17 05:12
[2017-06-28] MEDS: MONTELUKAST 10 MG TABLET PO SCH (20:05)
[2017-06-28] MEDS: CHOLECALCIFEROL 1,000 UNIT TABLET PO SCH (20:06)
[2017-06-28] MEDS: ASPIRIN EC 81 MG TABLET PO SCH (20:06)
[2017-06-28] MEDS: ZALEPLON 5 MG CAPSULE PO PRN (22:50)
[2017-06-29] MEDS: CLINDAMYCIN INJ 600 MG in PREMIX 1 EACH IV SCH ×2 (04:40→12:05)
[2017-06-29 05:04] LABS: Basophils % 0.4 % (0.0-0.8); Eosinophils # 0.1 10*3/uL (0.0-0.87); Eosinophils % 1.1 % (0.00-10.9); Hematocrit 36.1 VOL% (35.7-47.0); Hemoglobin 12.5 GM/DL (12.0-16.0); Immature Granulocytes % 0.4 %; Immature Granulocytes Absolute 0.04 #; Lymphocytes # 1.4 10*3/uL (1.4-4.0); Lymphocytes % 15.4 % (21.3-54.2); Mean Corpuscular HGB Conc 34.6 GM/DL (32-36); Mean Corpuscular Hemoglobin 29 PG (27-34); Mean Corpuscular Volume 83.6 FL (87-102); Monocytes # 0.6 10*3/uL (0.11-0.8); Monocytes % 6.5 % (1.7-12.7); Neutrophils # 7.1 10*3/uL (1.4-7.4); Neutrophils % 76.2 % (38.7-73.9); Platelet Count 228 T/CUMM (130-400); Red Blood Count 4.32 MC/CUMM (3.8-5.5); Red Cell Distribution Width 13.2 % (9.3-17.3); White Blood Count 9.3 T/CUMM (4-12)
[2017-06-29 05:37] LABS: Magnesium 1.8 MG/DL (1.8-2.4); Osmolality,Calculated 258.2 MOS/KG (273-304); Potassium 3.3 MMOL/L (3.5-5.1)
[2017-06-29] MEDS: MULTIVITAMIN (CENTRUM) TABLET PO SCH (08:54)
[2017-06-29] MEDS: CARVEDILOL 6.25 MG TABLET PO SCH ×2 (08:54→20:18)
[2017-06-29] MEDS: FUROSEMIDE 40 MG/4 ML VIAL IV SCH (08:54)
[2017-06-29] MEDS: FLUoxetine 20 MG CAPSULE PO SCH ×2 (08:54→20:19)
[2017-06-29] MEDS: PANTOPRAZOLE 40 MG TABLET PO SCH (08:54)
[2017-06-29] MEDS: INDAPAMIDE 2.5 MG TABLET PO SCH (08:54)
[2017-06-29] MEDS: ATORVASTATIN 40 MG TABLET PO SCH (08:55)
[2017-06-29] MEDS: DOCUSATE SODIUM 100 MG CAPSULE PO SCH ×2 (08:55→20:20)
[2017-06-29] MEDS: CELECOXIB 200 MG CAPSULE PO SCH (08:55)
[2017-06-29] MEDS: FAMOTIDINE 20 MG TABLET PO SCH ×2 (08:55→20:19)
[2017-06-29] MEDS: LUBIPROSTONE 24 MCG CAPSULE PO SCH ×2 (08:55→16:13)
[2017-06-29] MEDS: POTASSIUM CHLORIDE 20 MEQ TABLET PO SCH ×3 (08:55→20:19)
[2017-06-29] MEDS: VERAPAMIL SR 120 MG TABLET PO SCH (08:56)
[2017-06-29] MEDS: SPIRONOLACTONE 25 MG TABLET PO SCH ×2 (08:56→20:20)
[2017-06-29] MEDS: TICAGRELOR 90 MG TABLET PO SCH ×2 (08:56→20:20)
[2017-06-29] MEDS ORDERED: ALPRAZolam 0.25 MG TABLET PO PRN (09:42)
[2017-06-29] MEDS: ONDANSETRON 4 MG/2 ML VIAL IV PRN (12:05)
[2017-06-29] MEDS ORDERED: PROMETHAZINE INJ 12.5 MG in SODIUM CHLORIDE 0.9% 50 ML IV PRN (13:28)
--- NOTE | 2017-06-29 15:20 | Hospitalist Progress Note ---
Assessment and Plan (1) Cellulitis Status: Resolved Assessment and plan: Of BLE Current Visit: Yes (2) CHF (congestive heart failure) Status: Inactive Assessment and plan: EF is actually 65% Current Visit: No (3) Hypertension Status: Chronic Assessment and plan: Continue home meds Current Visit: No (4) Dyslipidemia Status: Chronic Assessment and plan: Continue statin Current Visit: No (5) Peripheral edema Status: Resolved Assessment and plan: Holding lasix now Current Visit: Yes Hospitalist: Subjective Interval history: No acute events overnight. Today she reports an upset stomach, with nausea not relieved with zofran with associated dizziness. She believes that this is due to the boost that she had. Exam - Constitutional Vitals: Period Temp Pulse Resp BP Sys/Garrett Pulse Ox Last 24 Hr 96.5 F-98.3 F 65-118 18-20 100-139/58-73 92-98 General appearance: normal weight - Head Head exam: Present: normocephalic, atraumatic - Eye Eye exam: Present: EOMI Pupils: Present: ERVIN - ENT ENT exam: Present: normal exam - Neck Neck exam: Present: normal inspection - Respiratory Respiratory exam: Present: clear to auscultation bilaterally. Absent: rhonchi, wheezes - Cardiovascular Cardiovascular exam: Present: regular rate and rhythm - GI/Abdominal GI/Abdominal exam: Present: normal bowel sounds, soft. Absent: tenderness, rebound - Extremities Exam Extremities exam: Present: normal inspection - Back Exam Back exam: Present: normal inspection - Neurological Exam Neurological exam: Present: alert, oriented X3 - Psychiatric Psychiatric exam: Present: normal affect, normal mood - Skin Skin exam: Present: warm, intact Results - Labs CBC & BMP: 06/29/17 04:37 06/29/17 04:37
--- NOTE | 2017-06-29 16:10 | Cardiology Consult Note ---
<Angelica Marcial E - Last Filed: 06/29/17 16:08> Assessment and Plan - Time spent with patient Time spent with patient: Greater than 30 minutes Time spent discussing smoking cessation with patient: 3 to 10 minutes (1) CHF (congestive heart failure) Status: Acute Assessment and plan: SEE PLAN OF CARE LISTED BELOW Current Visit: No Qualifiers: Congestive heart failure type: diastolic Congestive heart failure chronicity: acute on chronic Qualified Code(s): I50.33 - Acute on chronic diastolic (congestive) heart failure (2) Hypertension Status: Chronic Assessment and plan: SEE PLAN OF CARE LISTED BELOW Current Visit: No (3) Dyslipidemia Status: Chronic Assessment and plan: SEE PLAN OF CARE LISTED BELOW Current Visit: No (4) Chronic pain Status: Chronic Assessment and plan: SEE PLAN OF CARE LISTED BELOW Current Visit: No (5) Hyponatremia Status: Acute Assessment and plan: SEE PLAN OF CARE LISTED BELOW Current Visit: Yes (6) Peripheral edema Status: Acute Assessment and plan: SEE PLAN OF CARE LISTED BELOW Current Visit: Yes (7) Urinary tract infection Status: Acute Assessment and plan: SEE PLAN OF CARE LISTED BELOW Current Visit: Yes (8) Living alone Status: Acute Assessment and plan: SEE PLAN OF CARE LISTED BELOW Current Visit: Yes (9) Hypomagnesemia Status: Acute Assessment and plan: SEE PLAN OF CARE LISTED BELOW Current Visit: Yes History of Present Illness - Data of Consult Patient: known to practice within the last 3 years Consult date: 06/29/17 Requesting Physician: Kell Jeffrey - Consult Narrative Reason for consult: Edema History of present illness: 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 Coleman, 66WF, with risk factors significant for: Known CAD (S/P PCI mid- RCA and PCI to mid circumflex June 12, 2017), hypertension, dyslipidemia, daily tobacco use, sedentary lifestyle and noncompliance. History of NSTEMI in May 2017, history of chronic pain and chronic debilitation. (Last hospitalization patient had over utilize Fentanyl patches and initially arrived with altered mental status). It is reported the patient had an appointment to see Dr. Chandler this week but because she was in the hospital she was unable to attend the appointment. She is missed all of her outpatient appointments at this point. Cardiology was consulted for shortness of breath. June 27, 2017 echocardiogram: EF 65%, no significant valvular abnormality. Admitted June 26, 2017 for worsening shortness of breath and bilateral lower extremity edema, hyponatremia.. She was found to have urinary tract infection and she is being treated for such. She is also being treated for acute on chronic CHF (BNP 223) secondary to diastolic dysfunction. There are no daily weights to assess her weight loss progression during hospital stay. However, patient states she is breathing much better and is no longer orthopneic. Of note, patient does tell me she has been consuming more sodium and salt because of her chronically low sodium levels. Patient is actually being discharged to a swing bed facility today however she had GI upset and this has put her discharge on hold. Denies chest pain, heaviness, tightness. She does have soreness in her chest with palpation. She has diuresed a significant amount ( per patient report) in her lower extremity edema is 1-2+ brawny edema at this point. She has hypokalemic, hypomagnesemic, hyponatremic. These lab abnormalities are being addressed. Vital signs are stable. She continues to take Aspirin, Brilinta, Coreg, Atorvastatin. She is also taking Verapamil which we favor for rate control rather than incorporating SWETHA inhibitor. From a cardiac standpoint, continue current plan of care. Encourage patient to keep her follow-up appointment with Dr. Chandler. I have access to the records at [facility] and see that she was recently mailed a letter to contact the office to reschedule this appointment. The office is closed this afternoon I have encouraged her to contact the office on Sunday to reschedule an appointment. Also, I will ask that [facility] contact patient next week to reschedule appointment with Dr. Chandler in one month. She verbalized understanding of this information. We will sign off at this time. IMPRESSION/PLAN: 1. SHORTNESS OF BREATH - multifactorial to include COPD, mild acute on chronic systolic CHF. This is improved. Continue current plan of care 2. CHF - acute on chronic diastolic CHF, NYHA Class III initially. Now, Class II. Continue diuretics, betablockers. Daily weight and strict I &O 3. CAD - S/P PCI mid RCA, PCI-mid Cx June 12, 2017. Continue dual antiplatelet 4. HYPERTENSION - blood pressure adequately controlled. 5. DYSLIPIDEMIA - continue lipid-lowering agent 6. NONCOMPLIANCE - reiterated the importance of compliance. Patient reports she was actually going to follow-up in clinic with Dr. Chandler this week. 7. CHRONIC PAIN - pain is adequately controlled at this time 8. DEBILITATED PATIENT - scheduled for transfer to swing bed facility this weekend. Definitely, patient can benefit from strength training 9. HYPONATREMIA - this may be dilutional hyponatremia. 10. HYPOKALEMIA - verify she is on the protocol for replacement daily. Potassium supplementation has been increased recently. Also wants Penlac, 11. HYPOMAGNESEMIA - improved with replacement. 12. TOBACCO USE - greater than 5 minutes was spent today discussing the merits of tobacco cessation 13. UTI - continue current antibiotic regimen CC: Kell Jeffrey MD - Home Medications and Allergies Home Medications: Home Medications Medication Instructions Recorded Confirmed Type Aspirin [Ecotrin] 81 mg PO QAM 06/11/17 06/26/17 History Beclomethasone 40 Mcg Inhaler 120 mcg INH BID PRN 06/11/17 06/26/17 History [Qvar 40 Mcg] Carisoprodol [Soma] 350 mg PO TID PRN 06/11/17 06/26/17 History Celecoxib [Celebrex] 200 mg PO QAM 06/11/17 06/26/17 History Cholecalciferol [Vitamin D3] 1,000 unit PO BEDTIME 06/11/17 06/26/17 History Fluoxetine HCl [Prozac] 40 mg PO BID 06/11/17 06/26/17 History Hydromorphone HCl 4 mg PO TID PRN 06/11/17 06/26/17 History Indapamide 2.5 mg PO QAM 06/11/17 06/26/17 History Ipratropium/Albuterol Inhaler 3 puffs PO DAILY PRN 06/11/17 06/26/17 History [Combivent Respimat Inhaler] Lubiprostone [Amitiza] 24 mcg PO BID W/MEALS 06/11/17 06/26/17 History Montelukast Sodium 10 mg PO BEDTIME 06/11/17 06/26/17 History Multivit-Min/FA/Lycopen/Lutein 1 each PO QAM 06/11/17 06/26/17 History [Centrum Silver Tablet] Oxymetazoline 0.05% Nasal Spr 2 spray BOTH NARES BID PRN 06/11/17 06/26/17 History [Afrin Nasal Sultana] Polyethylene Glycol Powder 34 gm PO DAILY PRN 06/11/17 06/26/17 History [Miralax] Potassium Chloride 20 meq PO TID 06/11/17 06/26/17 History Spironolactone 25 mg PO BID 06/11/17 06/26/17 History Trazodone HCl 200 mg PO BEDTIME 06/11/17 06/26/17 History fentaNYL [Fentanyl 100 mcg/hr 1 each TRANSDERM Q3D 06/11/17 06/26/17 History Patch] fentaNYL [Fentanyl 50 mcg/hr Patch] 1 each TRANSDERM Q3D 06/11/17 06/26/17 History hydrOXYzine HCl [Hydroxyzine HCl] 25 mg PO TID 06/11/17 06/26/17 History raNITIdine HCl [Ranitidine HCl] 300 mg PO BID 06/11/17 06/26/17 History Atorvastatin [Lipitor] 40 mg PO DAILY #30 tablet 06/13/17 06/26/17 Rx Carvedilol [Coreg] 6.25 mg PO BID #60 tablet 06/13/17 06/26/17 Rx Ticagrelor [Brilinta] 90 mg PO BID #30 tablet 06/13/17 06/26/17 Rx Verapamil HCl [Verapamil ER Tab] 120 mg PO QAM #0 tablet 06/13/17 06/26/17 Rx Allergies/Adverse Reactions: Allergies Allergy/AdvReac Type Severity Reaction Status Date / Time Cephalosporins AdvReac ANAPHYLAXIS Verified 06/26/17 12:26 Erythromycin Base AdvReac RASH Verified 06/26/17 12:26 naproxen AdvReac RASH Verified 06/26/17 12:26 Review of systems: REVIEW OF SYSTEMS: - Constitutional Constitutional: Present: Fatigue. Absent: syncope, anorexia, night sweats - EENT Eyes: Absent: blurry vision, loss of vision, diplopia Ears: Absent: decreased hearing, ear pain, ear discharge - Cardiovascular Cardiovascular: Present: chest pain to palpation. Dyspnea on exertion, chronic. See HPI for worsening lower extremity edema. Denies palpitations - Respiratory Respiratory: Present: CEJA, denies cough. Orthopnea, improved. Absent: wheezing , hemoptysis, change in phlegm color - Gastrointestinal Gastrointestinal: Present: constipation but improving. Absent: abdominal pain , hematemesis, hematochezia, melena, change in bowel habits, nausea - Genitourinary Genitourinary: Absent: difficulty urinating, dysuria, urinary hesitancy, flank pain - Musculoskeletal Musculoskeletal: Present: back pain Absent: joint swelling, muscle cramps, muscle weakness - Neurological Neurological: Present: Poor gait without frequent falls. Absent: dizziness, hemiparesis - Psychiatric Psychiatric: Absent: anxiety, depression, difficulty concentrating - Endocrine Endocrine: Absent: cold intolerance, heat intolerance, polyuria, polyphagia, polydipsia - Hematologic/Lymphatic Hematologic/Lymphatic: Present: easy bruising. Absent: easy bleeding -Integumentary Integumentary: Absent: lesions, rashes, skin breakdown Medical,Surgical,& Family Hx - Medical History Cardio: History of: CHF, CAD, Hypertension, [place] Neurology: No history of: Seizures Endocrine: History of: Dyslipidemia Respiratory: History of: Asthma Genitourinary: History of: Recurring Urinary Tract Infections Musculoskeletal: History of: Osteoporosis - Surgical History Cardiac Surgeries: Sugical HX of: Cardiac Catheterization (stent) - Family History Family History: Reports;: Family Cancer, Family Diabetes, Family Heart Disease - Social History Smoking Status: Current every day smoker Have you smoked in the last 12 months: Yes Frequency of Alcohol Use: None Type of Drug Use: None, Prescription Drug Abuse Physical Examination Vital Signs Temp Pulse Resp BP Pulse Ox 98.7 F 84 20 140/98 99 06/26/17 12:20 06/26/17 12:20 06/26/17 12:20 06/26/17 12:20 06/26/17 12:20 Exam: General: [Appears well with no apparent distress.] [Pleasant and cooperative. ] [Appears comfortable.] HEENT: [PERRL, normocephalic, atraumatic. Mucous membranes moist. No jaundice noted. Conjunctiva moist and clear, sclerae anicteric] Neck: No JVD/HJR, no thyromegaly or lymphadenopathy noted. No carotid bruit appreciated Cardiac: [Regular rate and rhythm.] [No obvious murmur, rub or gallop.] Lungs: [Clear to auscultation without accessory muscle use to assist the respiratory pattern.] Barrel chested appearance. Oxygen in use via nasal cannula Abdomen: Soft, bowel sounds normoactive. Nontender and nondistended. No abdominal bruit or thrill noted. No masses noted. Musculoskeletal: No fluid collection. Decreased range of motion is noted. Extremities: No clubbing, cyanosis noted. [1-2+ brawny lower extremity edema noted.] Upper extremity pulses 2+. Lower extremity pulses 1+. Capillary refill less than 3 seconds. Skin: No unusual lesions or rashes. No skin breakdown appreciated. Neuro: Awake, alert and oriented 3. Moves all extremities well without hemiparesis or paralysis. No essential tremor is appreciated. Result/EKG - Labs CBC & BMP: 06/29/17 04:37 06/29/17 04:37 Lab Results: I have reviewed the past 24 hour labs Labs: Laboratory Results - last 24 hr 06/29/17 06/29/17 04:37 04:37 WBC 9.3 D RBC 4.32 Hgb 12.5 Hct 36.1 MCV 83.6 L MCH 29 MCHC 34.6 RDW 13.2 Plt Count 228 MPV 11.0 Neut % (Auto) 76.2 H Lymph % (Auto) 15.4 L [place] % (Auto) 6.5 Eos % (Auto) 1.1 Baso % (Auto) 0.4 Neut # (Auto) 7.1 Lymph # (Auto) 1.4 [place] # (Auto) 0.6 Eos # (Auto) 0.1 Baso # (Auto) 0.0 Immature Gran % 0.4 Nucleated RBC % 0.0 Immature Gran # 0.04 Nucleated RBCs # 0.00 Immature Plt Fraction 0.0 Sodium 127 L Potassium 3.3 L Chloride 83 L Carbon Dioxide 35 H Anion Gap 12.3 BUN 22 H Creatinine 1.30 H GFR Calculation 45 BUN/Creatinine Ratio 16.00 Glucose 112 H Calculated Osmolality 258.2 L Calcium 9.0 Magnesium 1.8 - Diagnostic Findings Procedure: Chest x-ray: report reviewed by mn - EKG EKG results: interpreted by mn EKG shows: sinus rhythm Specialty Discharge - Follow Up or Referrals Follow up with: Anay Chandler DO [Physician] - 1 Month <Abbie Mackey - Last Filed: 06/29/17 19:09> History of Present Illness - Consult Narrative History of present illness: I have personally interviewed and evaluated the patient, reviewed the chart and discussed medical decision-making with Practitioner Aggie. I have read this note and agree with her documentation here in. The patient has a history apparently of diastolic heart failure, she is not volume overloaded on my exam today. BNP is minimally elevated, less than 400 which is not specific for heart failure. She is being treated for multiple noncardiac issues. I would continue current care, please reconsult with any acute or dynamic cardiac issues. CC: Kell Jeffrey MD Physical Examination Vital Signs Temp Pulse Resp BP Pulse Ox 98.7 F 84 20 140/98 99 06/26/17 12:20 06/26/17 12:20 06/26/17 12:20 06/26/17 12:20 06/26/17 12:20 Result/EKG - Labs CBC & BMP: 06/29/17 04:37 06/29/17 04:37 Labs: Laboratory Results - last 24 hr 06/29/17 06/29/17 04:37 04:37 WBC 9.3 D RBC 4.32 Hgb 12.5 Hct 36.1 MCV 83.6 L MCH 29 MCHC 34.6 RDW 13.2 Plt Count 228 MPV 11.0 Neut % (Auto) 76.2 H Lymph % (Auto) 15.4 L [place] % (Auto) 6.5 Eos % (Auto) 1.1 Baso % (Auto) 0.4 Neut # (Auto) 7.1 Lymph # (Auto) 1.4 [place] # (Auto) 0.6 Eos # (Auto) 0.1 Baso # (Auto) 0.0 Immature Gran % 0.4 Nucleated RBC % 0.0 Immature Gran # 0.04 Nucleated RBCs # 0.00 Immature Plt Fraction 0.0 Sodium 127 L Potassium 3.3 L Chloride 83 L Carbon Dioxide 35 H Anion Gap 12.3 BUN 22 H Creatinine 1.30 H GFR Calculation 45 BUN/Creatinine Ratio 16.00 Glucose 112 H Calculated Osmolality 258.2 L Calcium 9.0 Magnesium 1.8
[2017-06-29] MEDS: LEVOFLOXACIN 250 MG TABLET PO SCH (16:13)
[2017-06-29] MEDS: ASPIRIN EC 81 MG TABLET PO SCH (20:18)
[2017-06-29] MEDS: CHOLECALCIFEROL 1,000 UNIT TABLET PO SCH (20:19)
[2017-06-29] MEDS: MONTELUKAST 10 MG TABLET PO SCH (20:20)
[2017-06-29] MEDS: ZALEPLON 5 MG CAPSULE PO PRN (22:32)
[2017-06-30] MEDS ORDERED: NITROGLYCERIN SL 0.4 MG TABLET SL ONE (05:30)
[2017-06-30] MEDS ORDERED: MORPHINE 2 MG/1 ML SYRINGE IV PRN (05:33)
[2017-06-30] MEDS ORDERED: NITROGLYCERIN SL 0.4 MG TABLET SL PRN (05:33)
[2017-06-30] MEDS ORDERED: MORPHINE 2 MG/1 ML SYRINGE ONE (05:36)
[2017-06-30] MEDS ORDERED: ASPIRIN EC 325 MG TABLET PO ONE (05:36)
[2017-06-30] MEDS ORDERED: ASPIRIN 325 MG TABLET ONE (05:37)
[2017-06-30 05:45] LABS: ABG Base Excess 8.3 MMOL/L (-2.5-2.5); ABG HCO3 33.9 MMOL/L (20-26); ABG Oxygen Saturation 98.2 % (95-100); ABG PCO2 50.8 MM HG (35-48); ABG PH 7.442 (7.35-7.45); ABG PO2 122.4 MM HG (80-95); ABG TCO2 35.4 MMOL/L (23-27)
--- NOTE | 2017-06-30 05:52 | Event Note ---
Heart alert called for patient. Upon arriving in patient's room, patient was complaining of chest pain including total body pain. Described chest pain as sharp but did not radiate. States pain scale 10/10. Slightly hypertensive with systolic being 160mmHg. Patient was given 2 SL NTG's which did improve chest pain some. EKG was obtained that showed posterior depression. Dr. Rowe was notified and copy of current and old EKG was sent to her. Lab work and CXR pending. Will move patient to CCU for closer monitoring.
[2017-06-30 05:56] LABS: Basophils % 0.4 % (0.0-0.8); Eosinophils # 0.1 10*3/uL (0.0-0.87); Eosinophils % 0.8 % (0.00-10.9); Hematocrit 38.3 VOL% (35.7-47.0); Hemoglobin 13.5 GM/DL (12.0-16.0); Immature Granulocytes % 0.3 %; Immature Granulocytes Absolute 0.03 #; Lymphocytes # 1.1 10*3/uL (1.4-4.0); Lymphocytes % 11.5 % (21.3-54.2); Mean Corpuscular HGB Conc 35.2 GM/DL (32-36); Mean Corpuscular Hemoglobin 29 PG (27-34); Mean Corpuscular Volume 82.9 FL (87-102); Mean Platelet Volume 10.9 FL (9.6-12.0); Monocytes # 0.7 10*3/uL (0.11-0.8); Monocytes % 7.2 % (1.7-12.7); Neutrophils # 7.5 10*3/uL (1.4-7.4); Neutrophils % 79.8 % (38.7-73.9); Platelet Count 235 T/CUMM (130-400); Red Blood Count 4.62 MC/CUMM (3.8-5.5); Red Cell Distribution Width 13.2 % (9.3-17.3); White Blood Count 9.4 T/CUMM (4-12)
[2017-06-30 06:06] LABS: Bilirubin,Total 0.6 MG/DL (0.2-1.0); Total Protein 6.9 G/DL (6.4-8.3)
[2017-06-30 06:07] LABS: Osmolality,Calculated 253.5 MOS/KG (273-304)
[2017-06-30 06:35] LABS: Troponin I Only < 0.015 NG/ML (0.00-0.045)
[2017-06-30 06:45] LABS: Troponin I Only < 0.015 NG/ML (0.00-0.045)
[2017-06-30] MEDS: NITROGLYCERIN 2% OINT 1 INCH/GM PACK TOP SCH ×3 (07:07→17:27)
--- NOTE | 2017-06-30 07:31 | Cardiology Progress Note ---
Assessment and Plan (1) Chest pain Status: Acute Current Visit: Yes (2) Coronary artery disease Status: Chronic Current Visit: Yes (3) Hypertension Status: Chronic Current Visit: No (4) Dyslipidemia Status: Chronic Current Visit: No (5) Chronic pain Status: Chronic Current Visit: No (6) Hyponatremia Status: Chronic Current Visit: Yes (7) Peripheral edema Status: Chronic Current Visit: Yes (8) Urinary tract infection Status: Acute Current Visit: Yes (9) Living alone Status: Acute Current Visit: Yes (10) Hypomagnesemia Status: Chronic Current Visit: Yes Cardiology - PN: Subj Interval history: MEAT BLENDER: DR. OLIVAS Summary: Ms. Coleman, 66WF, with history of CAD (S/P PCI mid-RCA and PCI to mid circumflex June 12, 2017), hypertension, dyslipidemia, daily tobacco use, sedentary lifestyle and noncompliance. History of NSTEMI in May 2017 , history of chronic pain and chronic debilitation. (Last hospitalization patient had over utilize Fentanyl patches and initially arrived with altered mental status). It is reported the patient had an appointment to see Dr. Olivas this week but because she was in the hospital she was unable to attend the appointment. She has missed all of her outpatient appointments at this point. June 27, 2017 echocardiogram: EF 65%, no significant valvular abnormality. Admitted June 26, 2017 for worsening shortness of breath and bilateral lower extremity edema, hyponatremia.. She was found to have urinary tract infection and she is being treated for such. She is also being treated for acute on chronic CHF (BNP 223) secondary to diastolic dysfunction. At the time he received a consult the patient's symptoms and presentation were resolved, and she was scheduled to get a swing bed but then developed some abdominal complaints. June 30, 2017: The patient was seen urgently in the CCU. I was called at 530 this morning and notified that the patient had a "heart alert" and that there was "ST elevation ME" on the ECG. The acute ECG and prior ECGs were sent to me, and I did not identify any ST elevation. There were some ST depressions which are somewhat chronic. She describes the pain as a severe pressure on her bilateral chest that does not radiate, although she is having all over body pain, and in particular having significant pain in her bilateral thighs. She says that the chest discomfort comes and goes but she cannot necessarily characterize how frequently she has been getting this before today. Her pain was much improved with 2 nitroglycerin and morphine. Her biggest complaint during my interview is really her leg pain. She believes she may have been short of breath with the more severe discomfort. Her chest wall is exquisitely tender to palpation but she is not sure that this is the same pain she was experiencing. Her cardiac exam reveals a regular rate and rhythm without murmur rub or gallop, lungs are clear to auscultation bilaterally. Her bilateral radial and femoral pulses are symmetrical and readily palpable. She does not have any clear tenderness to palpation or abnormality of her thighs where she is complaining of the pain. IMPRESSION/PLAN: 1. Chest pain-it is not really clear to me that this is a true acute coronary syndrome. We will treat her with Nitropaste, 1 shot of Lovenox, and cycle her cardiac biomarkers. My gestalt is that this is probably noncardiac. We will also treat treat her for GI sources of her symptoms. 2. SHORTNESS OF BREATH - multifactorial to include COPD, mild acute on chronic systolic CHF. This is improved. Continue current plan of care. 3. CHF - acute on chronic diastolic CHF, NYHA Class III initially. Now, Class II. Continue diuretics, betablockers. Daily weight and strict I &O 4. CAD - S/P PCI mid RCA, PCI-mid Cx June 12, 2017. Continue dual antiplatelet 5. HYPERTENSION - blood pressure adequately controlled. 6. DYSLIPIDEMIA -I am going to stop her statins because she has an elevated CK. It is only mildly elevated, however she does not appear to have much muscle mass, has diffuse tenderness and discomfort with this elevation. 7. NONCOMPLIANCE - reiterated the importance of compliance. Patient reports she was actually going to follow-up in clinic with Dr. Olivas this week. 8. CHRONIC PAIN - pain is not really controlled but we will defer to her primary service. 9. DEBILITATED PATIENT - scheduled for transfer to swing bed facility this weekend. Definitely, patient can benefit from strength training, although I am wondering if she really wants to go. She has developed some acute symptoms the night before each of her transfers. 10. HYPONATREMIA - this may be dilutional hyponatremia. 11. HYPOKALEMIA - verify she is on the protocol for replacement daily. Potassium supplementation has been increased recently. Also wants Penlac, 12. HYPOMAGNESEMIA - improved with replacement. 13. TOBACCO USE - the mertis of cessation were addressed. 14. UTI - continue current antibiotic regimen Exam (Progress Note) - Constitutional Vitals: Period Temp Pulse Resp BP Sys/Garrett Pulse Ox Last 24 Hr 97 F-97.9 F 61-85 16-24 118-164/60-94 92-99 Exam: General appearance: normal weight, no acute distress, somewhat drowsy but interactive - Head Head exam: Present: normal inspection, normocephalic, atraumatic. Absent: hematoma, laceration - Eye Eye exam: Present: EOMI. Absent: conjunctival injection, nystagmus, periorbital swelling, scleral icterus, laceration to eyelids Pupils: Present: PERRL. Absent: constricted, dilated, fixed, irregular, unequal - ENT ENT exam: Present: normal exam, normal external ear exam - Neck Neck exam: Present: normal inspection. Absent: lymphadenopathy, meningismus, tenderness, thyromegaly - Respiratory Respiratory exam: Present: clear to auscultation bilaterally, there is chest wall tenderness to palpation. Absent: accessory muscle use - Cardiovascular Cardiovascular exam: Present: regular rate and rhythm. Absent: carotid bruit, gallop, JVD, rubs - GI/Abdominal GI/Abdominal exam: Present: normal bowel sounds, soft, mild diffuse tenderness. Absent: distended, firm, guarding, hernia, mass, rebound. - Extremities Exam Extremities exam: Present: Arthritic deformities in the bilateral hands, normal capillary refill. Absent: calf tenderness, edema - Back Exam Back exam: Present: Mild scoliosis and kyphosis. Absent: muscle spasm, vertebral tenderness - Neurological Exam Neurological exam: Present: alert, oriented X3, grossly intact without resting or intention tremor - Psychiatric Psychiatric exam: Present: normal affect, normal mood - Skin Skin exam: Present: normal color, warm, dry, intact. Absent: cyanosis, diaphoretic, rash, urticaria Result/EKG - Labs CBC & BMP: 06/30/17 05:39 06/30/17 05:39 Lab Results: I have reviewed the past 24 hour labs Labs: Laboratory Results - last 24 hr 06/30/17 06/30/17 06/30/17 05:35 05:39 05:39 WBC 9.4 RBC 4.62 Hgb 13.5 Hct 38.3 MCV 82.9 L MCH 29 MCHC 35.2 RDW 13.2 Plt Count 235 MPV 10.9 Neut % (Auto) 79.8 H Lymph % (Auto) 11.5 L [place] % (Auto) 7.2 Eos % (Auto) 0.8 Baso % (Auto) 0.4 Neut # (Auto) 7.5 H Lymph # (Auto) 1.1 L [place] # (Auto) 0.7 Eos # (Auto) 0.1 Baso # (Auto) 0.0 Immature Gran % 0.3 Nucleated RBC % 0.0 Immature Gran # 0.03 Nucleated RBCs # 0.00 Immature Plt Fraction 0.0 ABG pH 7.442 ABG pCO2 50.8 H ABG pO2 122.4 H ABG HCO3 33.9 H ABG Total CO2 35.4 H ABG O2 Saturation 98.2 ABG Base Excess 8.3 H Sodium Potassium Chloride Carbon Dioxide Anion Gap BUN Creatinine GFR Calculation BUN/Creatinine Ratio Glucose Calculated Osmolality Calcium Total Bilirubin AST ALT Alkaline Phosphatase Total Creatine Kinase 439 H CK-MB (CK-2) 9.1 H CK and CKMB Interp Troponin I < 0.015 Total Protein Albumin Globulin Albumin/Globulin Ratio 06/30/17 06/30/17 05:39 06:05 WBC RBC Hgb Hct MCV MCH MCHC RDW Plt Count MPV Neut % (Auto) Lymph % (Auto) [place] % (Auto) Eos % (Auto) Baso % (Auto) Neut # (Auto) Lymph # (Auto) [place] # (Auto) Eos # (Auto) Baso # (Auto) Immature Gran % Nucleated RBC % Immature Gran # Nucleated RBCs # Immature Plt Fraction ABG pH ABG pCO2 ABG pO2 ABG HCO3 ABG Total CO2 ABG O2 Saturation ABG Base Excess Sodium 125 L Potassium 3.0 L Chloride 81 L Carbon Dioxide 33 H Anion Gap 14.0 BUN 19 H Creatinine 1.20 H GFR Calculation 50 BUN/Creatinine Ratio 15.00 Glucose 120 H Calculated Osmolality 253.5 L Calcium 9.0 Total Bilirubin 0.60 AST 38 H ALT 32 Alkaline Phosphatase 99 Total Creatine Kinase 417 H CK-MB (CK-2) 8.5 H CK and CKMB Interp 2.0 Troponin I < 0.015 Total Protein 6.9 Albumin 4.0 Globulin 2.9 Albumin/Globulin Ratio 1.3 - Diagnostic Findings Procedure: Chest x-ray: report reviewed by me - EKG EKG results: interpreted by me, sinus rhythm, no acute changes Specialty Discharge - Follow Up or Referrals Follow up with: Anay Olivas DO [Physician] - 1 Month
[2017-06-30] MEDS: POTASSIUM CHLORIDE RIDER 10 MEQ in PREMIX 1 EACH IV PRN ×3 (07:43→09:53)
--- NOTE | 2017-06-30 07:46 | XRay Report ---
Portable chest Indication: Shortness of breath, cough Comparison: June 28, 2017 Findings: Cardiomediastinal contours are stable. Marked elevation of left hemidiaphragm secondary to gaseous distention of large bowel, relatively unchanged since interval study. Lungs remain clear. No acute osseous abnormalities. Visualized upper abdomen demonstrates no acute pathology. Impression: Persistent elevation of the left hemidiaphragm PROCEDURE INTERPRETED AT [facility] DEPARTMENT OF RADIOLOGY Final Report Signed by: Ernestian Romero MD
[2017-06-30] MEDS ORDERED: ENOXAPARIN 80 MG/0.8 ML SYRINGE SUBCUT ONE (07:53)
[2017-06-30] MEDS: FAMOTIDINE 20 MG TABLET PO SCH ×2 (08:23→21:44)
[2017-06-30] MEDS: TICAGRELOR 90 MG TABLET PO SCH ×2 (08:23→21:51)
[2017-06-30] MEDS: DOCUSATE SODIUM 100 MG CAPSULE PO SCH ×2 (08:24→21:45)
[2017-06-30] MEDS: LUBIPROSTONE 24 MCG CAPSULE PO SCH ×2 (08:24→17:26)
[2017-06-30] MEDS: SPIRONOLACTONE 25 MG TABLET PO SCH (08:24)
[2017-06-30] MEDS: CARVEDILOL 6.25 MG TABLET PO SCH ×2 (08:24→21:45)
[2017-06-30] MEDS: FLUoxetine 20 MG CAPSULE PO SCH ×2 (08:24→21:45)
[2017-06-30] MEDS: POTASSIUM CHLORIDE 20 MEQ TABLET PO SCH ×3 (08:24→21:45)
[2017-06-30] MEDS: PANTOPRAZOLE 40 MG TABLET PO SCH (08:24)
[2017-06-30] MEDS: MULTIVITAMIN (CENTRUM) TABLET PO SCH (08:25)
[2017-06-30] MEDS: INDAPAMIDE 2.5 MG TABLET PO SCH (08:25)
[2017-06-30] MEDS: LEVOFLOXACIN 250 MG TABLET PO SCH (08:25)
[2017-06-30] MEDS: CELECOXIB 200 MG CAPSULE PO SCH (08:25)
[2017-06-30] MEDS: VERAPAMIL SR 120 MG TABLET PO SCH (08:25)
[2017-06-30] MEDS: MAGNESIUM OXIDE 400 MG TABLET PO SCH ×2 (08:42→21:43)
[2017-06-30] MEDS: HYDROmorphone 2 MG TABLET PO PRN ×3 (11:21→21:45)
--- NOTE | 2017-06-30 11:25 | Hospitalist Progress Note ---
Assessment and Plan (1) Cellulitis Status: Resolved Assessment and plan: Of BLE Current Visit: Yes (2) CHF (congestive heart failure) Status: Acute Assessment and plan: EF is 65% Improving Current Visit: No Qualifiers: Congestive heart failure type: diastolic Congestive heart failure chronicity: acute on chronic Qualified Code(s): I50.33 - Acute on chronic diastolic (congestive) heart failure (3) Hypertension Status: Chronic Assessment and plan: Continue home meds Current Visit: No (4) Dyslipidemia Status: Chronic Assessment and plan: Continue statin Current Visit: No (5) Peripheral edema Status: Chronic Assessment and plan: Holding lasix now Current Visit: Yes (6) Chest pain Status: Acute Assessment and plan: Cardiology on board, given lovenox No signs of ACS currently, continue to monitor on telemetry Current Visit: Yes (7) Shoulder pain, left Status: Acute Assessment and plan: x-ray Current Visit: Yes Hospitalist: Subjective Interval history: Overnight complaining of body pain and chest pain, heart alert was called. She was given nitro and moved to the CCU. Cardiology was called. This morning patient is mostly complaining of left shoulder and neck pain. She is concerned about having her po dilaudid restarted that she takes at home. Will transfer to telemetry today Exam - Constitutional Vitals: Period Temp Pulse Resp BP Sys/Garrett Pulse Ox Last 24 Hr 97 F-97.9 F 61-87 14-24 118-164/59-94 92-99 General appearance: normal weight - Head Head exam: Present: normocephalic, atraumatic - Eye Eye exam: Present: EOMI Pupils: Present: ERVIN - ENT ENT exam: Present: normal exam - Neck Neck exam: Present: normal inspection - Respiratory Respiratory exam: Present: clear to auscultation bilaterally. Absent: rhonchi, wheezes - Cardiovascular Cardiovascular exam: Present: regular rate and rhythm - GI/Abdominal GI/Abdominal exam: Present: normal bowel sounds, soft. Absent: tenderness, rebound - Extremities Exam Extremities exam: Present: normal inspection - Back Exam Back exam: Present: normal inspection - Neurological Exam Neurological exam: Present: alert, oriented X3 - Psychiatric Psychiatric exam: Present: normal affect, normal mood - Skin Skin exam: Present: warm, intact Results - Labs CBC & BMP: 06/30/17 05:39 06/30/17 05:39 Specialty Discharge - Follow Up or Referrals Follow up with: Anay Olivas DO [Physician] - 1 Month
[2017-06-30 12:20] LABS: CKMB % 2.2 %; Troponin I Only < 0.015 NG/ML (0.00-0.045)
[2017-06-30] MEDS: ONDANSETRON 4 MG/2 ML VIAL IV PRN (12:41)
--- NOTE | 2017-06-30 14:41 | Order Completion Report ---
See report scanned to EMR
--- NOTE | 2017-06-30 14:41 | Order Completion Report ---
See report scanned to EMR
[2017-06-30] MEDS: CARISOPRODOL 350 MG TABLET PO PRN ×2 (17:26→21:46)
[2017-06-30 18:37] LABS: CKMB % 2.2 %; Troponin I Only < 0.015 NG/ML (0.00-0.045)
--- NOTE | 2017-06-30 18:42 | XRay Report ---
Exam: Cervical spine 3 views Exam date: Gregg 2016 at 3:25 PM Indication: Pain Comparison: No relevant comparisons C3-C6 fusion and C7-T1 effusions appear uncomplicated. Osseous structures are demineralized. Degenerative facets. No fracture or subluxation. Prevertebral soft tissues are unremarkable. Lung apices are well aerated. Impression: No acute findings PROCEDURE INTERPRETED AT [facility] DEPARTMENT OF RADIOLOGY Final Report Signed by: Ernestina Romero MD
--- NOTE | 2017-06-30 18:46 | XRay Report ---
Exam: XR shoulder 2V LT Indication: Worsening left shoulder Pain, Comparison: No relevant comparisons Findings: Mild to moderate osteoarthritic changes across the glenohumeral joint. No fracture or dislocation. No joint effusion. No radiographic soft tissue abnormalities. Elevation of the left hemidiaphragm is noted. Impression: Mild to moderate glenohumeral arthrosis PROCEDURE INTERPRETED AT [facility] DEPARTMENT OF RADIOLOGY Final Report Signed by: Ernestina Romero MD
[2017-06-30] MEDS: traZODone 50 MG TABLET PO SCH (21:44)
[2017-06-30] MEDS: CHOLECALCIFEROL 1,000 UNIT TABLET PO SCH (21:44)
[2017-06-30] MEDS: ASPIRIN EC 81 MG TABLET PO SCH (21:44)
[2017-06-30] MEDS: MONTELUKAST 10 MG TABLET PO SCH (21:45)
[2017-06-30] MEDS: hydrOXYzine HCL 25 MG TABLET PO SCH (21:51)
[2017-07-01] MEDS: fentaNYL 50 MCG/HR PATCH TRANSDERM SCH (00:39)
[2017-07-01] MEDS: fentaNYL 100 MCG/HR PATCH TRANSDERM SCH (00:40)
[2017-07-01] MEDS: NITROGLYCERIN 2% OINT 1 INCH/GM PACK TOP SCH ×3 (00:43→12:43)
[2017-07-01 04:57] LABS: Calcium 9.7 MG/DL (8.5-10.1)
[2017-07-01 04:58] LABS: Magnesium 2.1 MG/DL (1.8-2.4); Osmolality,Calculated 246.8 MOS/KG (273-304); Potassium 4.3 MMOL/L (3.5-5.1)
[2017-07-01 05:01] LABS: Basophils % 0.4 % (0.0-0.8); Eosinophils # 0.1 10*3/uL (0.0-0.87); Eosinophils % 0.9 % (0.00-10.9); Hematocrit 37.1 VOL% (35.7-47.0); Immature Granulocytes % 0.4 %; Immature Granulocytes Absolute 0.03 #; Lymphocytes # 1.1 10*3/uL (1.4-4.0); Mean Corpuscular Hemoglobin 29 PG (27-34); Mean Corpuscular Volume 83.7 FL (87-102); Mean Platelet Volume 11.1 FL (9.6-12.0); Monocytes # 0.6 10*3/uL (0.11-0.8); Monocytes % 8.7 % (1.7-12.7); Neutrophils % 73.6 % (38.7-73.9); Platelet Count 173 T/CUMM (130-400); Red Blood Count 4.43 MC/CUMM (3.8-5.5); Red Cell Distribution Width 13.2 % (9.3-17.3); White Blood Count 6.8 T/CUMM (4-12)
[2017-07-01] MEDS: DOCUSATE SODIUM 100 MG CAPSULE PO SCH ×2 (09:06→21:18)
[2017-07-01] MEDS: CARISOPRODOL 350 MG TABLET PO PRN ×3 (09:06→21:19)
[2017-07-01] MEDS: LEVOFLOXACIN 250 MG TABLET PO SCH (09:06)
[2017-07-01] MEDS: MULTIVITAMIN (CENTRUM) TABLET PO SCH (09:06)
[2017-07-01] MEDS: VERAPAMIL SR 120 MG TABLET PO SCH (09:07)
[2017-07-01] MEDS: HYDROmorphone 2 MG TABLET PO PRN ×3 (09:07→19:42)
[2017-07-01] MEDS: MAGNESIUM OXIDE 400 MG TABLET PO SCH ×2 (09:08→21:18)
[2017-07-01] MEDS: TICAGRELOR 90 MG TABLET PO SCH ×2 (09:08→21:19)
[2017-07-01] MEDS: CELECOXIB 200 MG CAPSULE PO SCH (09:08)
[2017-07-01] MEDS: FLUoxetine 20 MG CAPSULE PO SCH ×2 (09:08→21:18)
[2017-07-01] MEDS: LUBIPROSTONE 24 MCG CAPSULE PO SCH ×2 (09:08→17:27)
[2017-07-01] MEDS: PANTOPRAZOLE 40 MG TABLET PO SCH (09:09)
[2017-07-01] MEDS: hydrOXYzine HCL 25 MG TABLET PO SCH ×3 (09:09→21:19)
[2017-07-01] MEDS: SODIUM CHLORIDE 0.9% 1,000 ML IV SCH ×2 (09:09→21:45)
[2017-07-01] MEDS: INDAPAMIDE 2.5 MG TABLET PO SCH (09:09)
[2017-07-01] MEDS: CARVEDILOL 6.25 MG TABLET PO SCH ×2 (09:09→21:19)
[2017-07-01] MEDS: FAMOTIDINE 20 MG TABLET PO SCH ×2 (09:09→21:18)
[2017-07-01] MEDS: POTASSIUM CHLORIDE 20 MEQ TABLET PO SCH ×3 (09:09→21:18)
--- NOTE | 2017-07-01 14:24 | Hospitalist Progress Note ---
Assessment and Plan (1) Cellulitis Status: Resolved Assessment and plan: Of BLE Current Visit: Yes (2) CHF (congestive heart failure) Status: Acute Assessment and plan: EF is 65% Improving Current Visit: No Qualifiers: Congestive heart failure type: diastolic Congestive heart failure chronicity: acute on chronic Qualified Code(s): I50.33 - Acute on chronic diastolic (congestive) heart failure (3) Hypertension Status: Chronic Assessment and plan: Continue home meds Current Visit: No (4) Dyslipidemia Status: Chronic Assessment and plan: Continue statin Current Visit: No (5) Peripheral edema Status: Chronic Assessment and plan: Holding lasix now Current Visit: Yes (6) Chest pain Status: Acute Assessment and plan: Cardiology on board, given lovenox No signs of ACS currently, continue to monitor on telemetry Current Visit: Yes (7) Shoulder pain, left Status: Acute Assessment and plan: x-ray with OA Current Visit: Yes (8) Hyponatremia Status: Acute Assessment and plan: Start gentle iv fluids Current Visit: Yes Hospitalist: Subjective Interval history: No acute events overnight. Patient reports that her pain is better since restarting her home medications. Exam - Constitutional Vitals: Period Temp Pulse Resp BP Sys/Garrett Pulse Ox Last 24 Hr 96.2 F-98.6 F 68-88 16-20 125-162/76-93 90-96 General appearance: normal weight - Head Head exam: Present: normocephalic, atraumatic - Eye Eye exam: Present: EOMI Pupils: Present: ERVIN - ENT ENT exam: Present: normal exam - Neck Neck exam: Present: normal inspection - Respiratory Respiratory exam: Present: clear to auscultation bilaterally. Absent: rhonchi, wheezes - Cardiovascular Cardiovascular exam: Present: regular rate and rhythm - GI/Abdominal GI/Abdominal exam: Present: normal bowel sounds, soft. Absent: tenderness, rebound - Extremities Exam Extremities exam: Present: normal inspection - Back Exam Back exam: Present: normal inspection - Neurological Exam Neurological exam: Present: alert, oriented X3 - Psychiatric Psychiatric exam: Present: normal affect, normal mood - Skin Skin exam: Present: warm, intact Results - Labs CBC & BMP: 07/01/17 04:49 07/01/17 03:37 Specialty Discharge - Follow Up or Referrals Follow up with: Anay Olivas DO [Physician] - 1 Month
--- NOTE | 2017-07-01 14:52 | Cardiology Progress Note ---
Assessment and Plan (1) Chest pain Status: Acute Current Visit: Yes (2) Coronary artery disease Status: Chronic Current Visit: Yes (3) Hypertension Status: Chronic Current Visit: No (4) Dyslipidemia Status: Chronic Current Visit: No (5) Chronic pain Status: Chronic Current Visit: No (6) Hyponatremia Status: Chronic Current Visit: Yes (7) Peripheral edema Status: Chronic Current Visit: Yes (8) Urinary tract infection Status: Acute Current Visit: Yes (9) Living alone Status: Acute Current Visit: Yes (10) Hypomagnesemia Status: Chronic Current Visit: Yes Cardiology - PN: Subj Interval history: FEEDER LOADER: DR. OLIVAS Summary: Ms. Coleman, 66WF, with history of CAD (S/P PCI mid-RCA and PCI to mid circumflex June 12, 2017), hypertension, dyslipidemia, daily tobacco use, sedentary lifestyle and noncompliance. History of NSTEMI in May 2017 , history of chronic pain and chronic debilitation. (Last hospitalization patient had over utilize Fentanyl patches and initially arrived with altered mental status). June 27, 2017 echocardiogram: EF 65%, no significant valvular abnormality. Admitted June 26, 2017 for worsening shortness of breath and bilateral lower extremity edema, hyponatremia.. She was found to have urinary tract infection and she is being treated for such. She is also being treated for acute on chronic CHF (BNP 223) secondary to diastolic dysfunction. At the time we received a consult the patient's symptoms and presentation were resolved, and she was scheduled to get a swing bed but then developed some abdominal complaints. The patient had a "heart alert" June 30, [address] elevation on the ECG. In fact I do not identify any ST elevation. Her symptoms were atypical, generalized body pain. She ruled out for myocardial infarction. July 02, 2017: The patient reports that she is feeling much better today. Her pain is much improved. Of note, I did discontinue her statin drug yesterday because of elevated CK levels, history of fibromyalgia and worsening all over body pain. She is denying any chest pain or shortness of breath today. She is very interested in going to a [facility] facility. She does report feeling a little sleepy today. IMPRESSION/PLAN: 1. Chest pain-she ruled out for [place], the symptoms have resolved. 2. SHORTNESS OF BREATH - multifactorial to include COPD, mild acute on chronic systolic CHF. This is improved. Continue current plan of care. 3. CHF - acute on chronic diastolic CHF, NYHA Class III initially. Now, Class II. Continue diuretics, betablockers. Daily weight and strict I &O 4. CAD - S/P PCI mid RCA, PCI-mid Cx June 12, 2017. Continue dual antiplatelet 5. HYPERTENSION - blood pressure adequately controlled. 6. DYSLIPIDEMIA -I am going to stop her statins because she has an elevated CK. It is only mildly elevated, however she does not appear to have much muscle mass, has diffuse tenderness and discomfort with this elevation. 7. NONCOMPLIANCE - reiterated the importance of compliance. Patient reports she was actually going to follow-up in clinic with Dr. Olivas this week. 8. CHRONIC PAIN - pain is not really controlled but we will defer to her primary service. 9. DEBILITATED PATIENT - scheduled for transfer to swing bed facility this weekend. Definitely, patient can benefit from strength training, although I am wondering if she really wants to go. She has developed some acute symptoms the night before each of her transfers. 10. HYPONATREMIA - this may be dilutional hyponatremia. 11. HYPOKALEMIA - verify she is on the protocol for replacement daily. Potassium supplementation has been increased recently. Also wants Joyce, 12. HYPOMAGNESEMIA - improved with replacement. 13. TOBACCO USE - the mertis of cessation were addressed. 14. UTI - continue current antibiotic regimen Exam (Progress Note) - Constitutional Vitals: Period Temp Pulse Resp BP Sys/Garrett Pulse Ox Last 24 Hr 96.2 F-98.6 F 68-88 16-20 125-162/76-93 90-96 Exam: General appearance: normal weight, no acute distress, somewhat drowsy but interactive - Head Head exam: Present: normal inspection, normocephalic, atraumatic. Absent: hematoma, laceration - Eye Eye exam: Present: EOMI. Absent: conjunctival injection, nystagmus, periorbital swelling, scleral icterus, laceration to eyelids Pupils: Present: PERRL. Absent: constricted, dilated, fixed, irregular, unequal - ENT ENT exam: Present: normal exam, normal external ear exam - Neck Neck exam: Present: normal inspection. Absent: lymphadenopathy, meningismus, tenderness, thyromegaly - Respiratory Respiratory exam: Present: clear to auscultation bilaterally, there is chest wall tenderness to palpation. Absent: accessory muscle use - Cardiovascular Cardiovascular exam: Present: regular rate and rhythm. Absent: carotid bruit, gallop, JVD, rubs - GI/Abdominal GI/Abdominal exam: Present: normal bowel sounds, soft, mild diffuse tenderness. Absent: distended, firm, guarding, hernia, mass, rebound. - Extremities Exam Extremities exam: Present: Arthritic deformities in the bilateral hands, normal capillary refill. Absent: calf tenderness, edema - Back Exam Back exam: Present: Mild scoliosis and kyphosis. Absent: muscle spasm, vertebral tenderness - Neurological Exam Neurological exam: Present: alert, oriented X3, grossly intact without resting or intention tremor - Psychiatric Psychiatric exam: Present: normal affect, normal mood - Skin Skin exam: Present: normal color, warm, dry, intact. Absent: cyanosis, diaphoretic, rash, urticaria Result/EKG - Labs CBC & BMP: 07/01/17 04:49 07/01/17 03:37 Lab Results: I have reviewed the past 24 hour labs Labs: Laboratory Results - last 24 hr 06/30/17 07/01/17 07/01/17 18:10 03:37 04:49 WBC 6.8 RBC 4.43 Hgb 13.0 Hct 37.1 MCV 83.7 L MCH 29 MCHC 35.0 RDW 13.2 Plt Count 173 D MPV 11.1 Neut % (Auto) 73.6 Lymph % (Auto) 16.0 L [place] % (Auto) 8.7 Eos % (Auto) 0.9 Baso % (Auto) 0.4 Neut # (Auto) 5.0 Lymph # (Auto) 1.1 L [place] # (Auto) 0.6 Eos # (Auto) 0.1 Baso # (Auto) 0.0 Immature Gran % 0.4 Nucleated RBC % 0.0 Immature Gran # 0.03 Nucleated RBCs # 0.00 Immature Plt Fraction 0.0 Sodium 123 L Potassium 4.3 Chloride 83 L Carbon Dioxide 27 Anion Gap 17.3 H BUN 13 Creatinine 1.00 GFR Calculation 62 BUN/Creatinine Ratio 13.00 Glucose 104 Serum Osmolality Calculated Osmolality 246.8 L Calcium 9.7 Magnesium 2.1 Total Creatine Kinase 407 H CK-MB (CK-2) 8.9 H CK and CKMB Interp 2.2 Troponin I < 0.015 Ur Random Sodium 07/01/17 07/01/17 12:15 Unknown WBC RBC Hgb Hct MCV MCH MCHC RDW Plt Count MPV Neut % (Auto) Lymph % (Auto) [place] % (Auto) Eos % (Auto) Baso % (Auto) Neut # (Auto) Lymph # (Auto) Cass # (Auto) Eos # (Auto) Baso # (Auto) Immature Gran % Nucleated RBC % Immature Gran # Nucleated RBCs # Immature Plt Fraction Sodium Potassium Chloride Carbon Dioxide Anion Gap BUN Creatinine GFR Calculation BUN/Creatinine Ratio Glucose Serum Osmolality 253 L Calculated Osmolality Calcium Magnesium Total Creatine Kinase CK-MB (CK-2) CK and CKMB Interp Troponin I Ur Random Sodium 32.0 Specialty Discharge - Follow Up or Referrals Follow up with: Anay Olivas DO [Physician] - 1 Month
[2017-07-01 16:18] LABS: Calcium 8.4 MG/DL (8.5-10.1); Osmolality,Calculated 250.6 MOS/KG (273-304)
[2017-07-01] MEDS: traZODone 50 MG TABLET PO SCH (21:18)
[2017-07-01] MEDS: CHOLECALCIFEROL 1,000 UNIT TABLET PO SCH (21:19)
[2017-07-01] MEDS: ASPIRIN EC 81 MG TABLET PO SCH (21:19)
[2017-07-01] MEDS: MONTELUKAST 10 MG TABLET PO SCH (21:19)
[2017-07-02 05:41] LABS: Basophils % 0.6 % (0.0-0.8); Eosinophils # 0.2 10*3/uL (0.0-0.87); Eosinophils % 2.2 % (0.00-10.9); Hematocrit 35.4 VOL% (35.7-47.0); Hemoglobin 12.5 GM/DL (12.0-16.0); Immature Granulocytes % 0.4 %; Immature Granulocytes Absolute 0.03 #; Lymphocytes # 1.6 10*3/uL (1.4-4.0); Lymphocytes % 23.3 % (21.3-54.2); Mean Corpuscular HGB Conc 35.3 GM/DL (32-36); Mean Corpuscular Hemoglobin 29 PG (27-34); Mean Corpuscular Volume 83.1 FL (87-102); Monocytes # 0.5 10*3/uL (0.11-0.8); Monocytes % 7.7 % (1.7-12.7); Neutrophils # 4.4 10*3/uL (1.4-7.4); Neutrophils % 65.8 % (38.7-73.9); Platelet Count 180 T/CUMM (130-400); Red Blood Count 4.26 MC/CUMM (3.8-5.5); Red Cell Distribution Width 13.2 % (9.3-17.3); White Blood Count 6.8 T/CUMM (4-12)
[2017-07-02 06:15] LABS: Calcium 9.4 MG/DL (8.5-10.1); Magnesium 1.9 MG/DL (1.8-2.4)
[2017-07-02 06:16] LABS: Osmolality,Calculated 248.6 MOS/KG (273-304); Potassium 3.7 MMOL/L (3.5-5.1)
[2017-07-02] MEDS: INDAPAMIDE 2.5 MG TABLET PO SCH (09:29)
[2017-07-02] MEDS: hydrOXYzine HCL 25 MG TABLET PO SCH ×2 (09:29→14:32)
[2017-07-02] MEDS: MULTIVITAMIN (CENTRUM) TABLET PO SCH (09:29)
[2017-07-02] MEDS: CELECOXIB 200 MG CAPSULE PO SCH (09:29)
[2017-07-02] MEDS: LUBIPROSTONE 24 MCG CAPSULE PO SCH (09:29)
[2017-07-02] MEDS: FAMOTIDINE 20 MG TABLET PO SCH (09:29)
[2017-07-02] MEDS: TICAGRELOR 90 MG TABLET PO SCH (09:29)
[2017-07-02] MEDS: CARVEDILOL 6.25 MG TABLET PO SCH (09:29)
[2017-07-02] MEDS: MAGNESIUM OXIDE 400 MG TABLET PO SCH (09:29)
[2017-07-02] MEDS: DOCUSATE SODIUM 100 MG CAPSULE PO SCH (09:30)
[2017-07-02] MEDS: FLUoxetine 20 MG CAPSULE PO SCH (09:30)
[2017-07-02] MEDS: POTASSIUM CHLORIDE 20 MEQ TABLET PO SCH ×2 (09:30→14:32)
[2017-07-02] MEDS: VERAPAMIL SR 120 MG TABLET PO SCH (09:30)
[2017-07-02] MEDS: LEVOFLOXACIN 250 MG TABLET PO SCH (09:30)
[2017-07-02] MEDS: PANTOPRAZOLE 40 MG TABLET PO SCH (09:30)
--- NOTE | 2017-07-02 10:53 | Cardiology Progress Note ---
Cardiology - PN: Subj Interval history: Cardiology note 66-year-old woman status post non-Q [place] with mid RCA and mid circumflex stent June 12, 2017. Readmitted with UTI hyponatremia and diastolic CHF. Patient was on Lasix 40 mg IV twice daily which was stopped on June 29. Today's sodium is 124 creatinine 0.80 and she has trace leg edema Regular rhythm no murmur or gallop Decreased breath sounds but clear Abdomen benign. Blood pressure 106/60 Lab data today Sodium 124 potassium 3.7 chloride 85 CO2 30 BUN 12 creatinine 0.80 magnesium 1.9 glucose 107 Plan Lasix 40 mg daily and KCl 20 mg daily Awaiting swing bed Exam (Progress Note) - Constitutional Vitals: Period Temp Pulse Resp BP Sys/Garrett Pulse Ox Last 24 Hr 96.5 F-98.6 F 63-83 16-20 90-136/50-81 90-94 Result/EKG - Labs CBC & BMP: 07/02/17 05:25 07/02/17 05:25 Labs: Laboratory Results - last 24 hr 07/01/17 07/01/17 07/02/17 12:15 15:33 05:25 WBC 6.8 RBC 4.26 Hgb 12.5 Hct 35.4 L MCV 83.1 L MCH 29 MCHC 35.3 RDW 13.2 Plt Count 180 MPV 11.0 Neut % (Auto) 65.8 Lymph % (Auto) 23.3 [place] % (Auto) 7.7 Eos % (Auto) 2.2 Baso % (Auto) 0.6 Neut # (Auto) 4.4 Lymph # (Auto) 1.6 [place] # (Auto) 0.5 Eos # (Auto) 0.2 Baso # (Auto) 0.0 Immature Gran % 0.4 Nucleated RBC % 0.0 Immature Gran # 0.03 Nucleated RBCs # 0.00 Immature Plt Fraction 0.0 Sodium 124 L Potassium 4.0 Chloride 85 L Carbon Dioxide 32 Anion Gap 11.0 BUN 14 Creatinine 1.20 H GFR Calculation 50 BUN/Creatinine Ratio 11.00 Glucose 116 H Calculated Osmolality 250.6 L Calcium 8.4 L Magnesium Ur Random Sodium 32.0 07/02/17 05:25 WBC RBC Hgb Hct MCV MCH MCHC RDW Plt Count MPV Neut % (Auto) Lymph % (Auto) [place] % (Auto) Eos % (Auto) Baso % (Auto) Neut # (Auto) Lymph # (Auto) [place] # (Auto) Eos # (Auto) Baso # (Auto) Immature Gran % Nucleated RBC % Immature Gran # Nucleated RBCs # Immature Plt Fraction Sodium 124 L Potassium 3.7 Chloride 85 L Carbon Dioxide 30 Anion Gap 12.7 BUN 12 Creatinine 0.80 GFR Calculation 81 BUN/Creatinine Ratio 15.00 Glucose 107 H Calculated Osmolality 248.6 L Calcium 9.4 Magnesium 1.9 Ur Random Sodium Specialty Discharge - Follow Up or Referrals Follow up with: Anay Olivas DO [Physician] - 1 Month
[2017-07-02] MEDS ORDERED: FUROSEMIDE 40 MG TABLET PO SCH (11:00)
[2017-07-02] MEDS: HYDROmorphone 2 MG TABLET PO PRN (13:18)
[2017-07-02] MEDS: CARISOPRODOL 350 MG TABLET PO PRN (13:19)
--- NOTE | 2017-07-02 15:56 | Discharge Summary ---
Hospital Course - Hospital Course Hospital Course: This is a chronically ill 66-year-old female that presented to the ED at [facility] this afternoon for the evaluation of shortness of breath. The patient has a medical history significant for coronary artery disease, congestive heart failure, hypertension, myocardial infarction, osteoporosis, chronic back pain, chronic urinary tract infections, prescription drug abuse, and nicotine addiction. Patient was admitted to the hospitalist service with diastolic heart failure and ble cellulitis. She was started on IV lasix and clindamycin. She improved rather quickly. Hospital course was complicated by chest pain. Cardiology was consulted. Acute coronary syndrome was ruled out. Patient also with hyponatremia with slow improvement. She has now reached maximal benefit of inpatient stay and will be discharged to home. - Time spent with patient Time with patient DS: Greater than 30 minutes (45) Diagnosis - Discharge Diagnosis (1) Cellulitis Status: Resolved (2) CHF (congestive heart failure) Status: Chronic (3) Hypertension Status: Chronic (4) Dyslipidemia Status: Chronic (5) Peripheral edema Status: Chronic (6) Chest pain Status: Resolved (7) Shoulder pain, left Status: Resolved (8) Hyponatremia Status: Chronic Specialty Discharge - Follow Up or Referrals Follow up with: Anay Olivas DO [Physician] - 1 Month Discharge Plan - Discharge Data Disposition: Swing Bed, Hos Based, [facility] Condition at Discharge: Stable Discharge Diet: heart healthy Activity: as per physical therapy Hygiene: no restrictions Weight Bearing at Discharge: weight bear as tolerated Contact your physician if you experience:: fever over 101, Shortness of breath - Discharge Medications New Furosemide Tab [Lasix Tab] 40 mg PO DAILY #30 tablet Continue Multivit-Min/FA/Lycopen/Lutein [Centrum Silver Tablet] 1 each PO QAM Aspirin [Ecotrin] 81 mg PO QAM Beclomethasone 40 Mcg Inhaler [Qvar 40 Mcg] 120 mcg INH BID PRN PRN Reason: BREATHING Fluoxetine HCl [Prozac] 40 mg PO BID Ipratropium/Albuterol Inhaler [Combivent Respimat Inhaler] 3 puffs PO DAILY PRN PRN Reason: BREATHING Montelukast Sodium 10 mg PO BEDTIME Potassium Chloride 20 meq PO TID Trazodone HCl 200 mg PO BEDTIME fentaNYL [Fentanyl 50 mcg/hr Patch] 1 each TRANSDERM Q3D Celecoxib [Celebrex] 200 mg PO QAM hydrOXYzine HCl [Hydroxyzine HCl] 25 mg PO TID Hydromorphone HCl 4 mg PO TID PRN PRN Reason: Pain Carisoprodol [Soma] 350 mg PO TID PRN PRN Reason: Pain raNITIdine HCl [Ranitidine HCl] 300 mg PO BID Indapamide 2.5 mg PO QAM Cholecalciferol [Vitamin D3] 1,000 unit PO BEDTIME Atorvastatin [Lipitor] 40 mg PO DAILY #30 tablet Carvedilol [Coreg] 6.25 mg PO BID #60 tablet Ticagrelor [Brilinta] 90 mg PO BID #30 tablet Verapamil HCl [Verapamil ER Tab] 120 mg PO QAM #0 tablet Polyethylene Glycol Powder [Miralax] 34 gm PO DAILY PRN PRN Reason: Constipation Oxymetazoline 0.05% Nasal Spr [Afrin Nasal [place]] 2 spray BOTH NARES BID PRN PRN Reason: ALLERGIES Lubiprostone [Amitiza] 24 mcg PO BID W/MEALS fentaNYL [Fentanyl 100 mcg/hr Patch] 1 each TRANSDERM Q3D Discontinued Spironolactone 25 mg PO BID - Follow Up or Referral Follow Up: Anay Olivas DO [Physician] - 1 Month - Forms/Instructions Exam - Constitutional Vitals: Period Temp Pulse Resp BP Sys/Garrett Pulse Ox Last 24 Hr 96.5 F-98.6 F 66-83 16-20 90-136/50-79 90-95 General appearance: over weight - Head Head exam: Present: normocephalic, atraumatic - Eye Eye exam: Present: EOMI Pupils: Present: ERVIN - ENT ENT exam: Present: normal exam - Neck Neck exam: Present: normal inspection - Respiratory Respiratory exam: Present: clear to auscultation bilaterally. Absent: rhonchi, wheezes - Cardiovascular Cardiovascular exam: Present: regular rate and rhythm - GI/Abdominal GI/Abdominal exam: Present: normal bowel sounds, soft. Absent: tenderness, rebound - Extremities Exam Extremities exam: Present: normal inspection - Back Exam Back exam: Present: normal inspection - Neurological Exam Neurological exam: Present: alert, oriented X3 - Psychiatric Psychiatric exam: Present: normal affect, normal mood - Skin Skin exam: Present: warm, intact Discharge Results Procedures and tests throughout hospitalization: Pending Orders 07/03/17 04:00 Basic Metabolic Panel w/Mg IN AM Comp Blood Count Auto Diff IN AM Labs on day of discharge: Labs from last 24 hours 07/02/17 07/02/17 07/01/17 05:25 05:25 15:33 WBC 6.8 RBC 4.26 Hgb 12.5 Hct 35.4 L MCV 83.1 L MCH 29 MCHC 35.3 RDW 13.2 Plt Count 180 MPV 11.0 Neut % (Auto) 65.8 Lymph % (Auto) 23.3 [place] % (Auto) 7.7 Eos % (Auto) 2.2 Baso % (Auto) 0.6 Neut # (Auto) 4.4 Lymph # (Auto) 1.6 [place] # (Auto) 0.5 Eos # (Auto) 0.2 Baso # (Auto) 0.0 Immature Gran % 0.4 Nucleated RBC % 0.0 Immature Gran # 0.03 Nucleated RBCs # 0.00 Immature Plt Fraction 0.0 Sodium 124 L 124 L Potassium 3.7 4.0 Chloride 85 L 85 L Carbon Dioxide 30 32 Anion Gap 12.7 11.0 BUN 12 14 Creatinine 0.80 1.20 H GFR Calculation 81 50 BUN/Creatinine Ratio 15.00 11.00 Glucose 107 H 116 H Calculated Osmolality 248.6 L 250.6 L Calcium 9.4 8.4 L Magnesium 1.9 DS: Provider Date of admission: 06/26/17 15:04 Primary care physician: . No PCP Attending physician on admission: Kell Jeffrey MD Consults: 06/26/17 16:27 Consult to Case Mgmt/Social Srvs [CONS] Routine Reason for Case Mgmt/Social Srvs: Rehab Other Swingbed/SNF/Group Home 06/28/17 11:10 Consult to Physical Therapy [CONS] Routine Reason for Physical Therapy: Evaluate and Treat 06/29/17 09:43 Consult to Physician [CONS] Routine Comment: Consulting Provider: Dilshad Garcia Consult Notification Comment: has been see per reports. Discharging clinician: Kell Jeffrey MD
[2017-07-02 16:31] VITALS: BP 93/62
== END 2017-07-02 17:21 | disposition swing bed (61) | DRG 280 ==
LOC: N.ED 12:14 → N.EDINP 15:04 → N.2E 18:16 → N.CC 06-30 05:57 → N.TELEN 06-30 10:57
PROVIDERS: ADMIT Internal Medicine; ATTEND Internal Medicine